=== PATIENT | male | born 1975 | race Caucasian/White ===

== ENCOUNTER 2020-11-03 09:55 | Emergency (ER) | payer OTHER, SELFPAY ==
[2020-11-03 10:06] VITALS: BP 153/107; PULSE 83; RESP 16; TEMP 37.7; O2SAT 100; BMI 42.8
--- NOTE | 2020-11-03 10:14 | HMH.EDUTC ---
[facility] [place]ression: Sinusitis Qualifiers: Sinusitis location: unspecified location Chronicity: unspecified Qualified Code(s): J32.9 - Chronic sinusitis, unspecified Disposition: Home, Self-Care Condition on Discharge: Good Instructions: Sinusitis, DI for Sinusitis, Azithromycin Additional Instructions: *Monitor Temp, Over the counter Motrin or Tylenol as directed/as needed Tylenol every 4 hours and Motrin every 6 hours (as long as your family doctor has told you that you can take it) for fever or pain. and straight to ER if unable to lower temp less than 101.0 after medication given *Warm salt water gargles may help to soothe the throat *Throat Lozenges *Warm fluids like tea with honey may help to soothe the throat *Sleep elevated *Humidifier/Vaporizer *Flonase 2 sprays in each nostril daily but be aware that it may take 2-3 days before you notice improvement Take medication as prescribed [facility] make sure to follow up with your Family Doctor for re-evaluation of blood pressure if it continues to remain elevated Follow up IMMEDIATELY for new or worsening symptoms or no Noticeable improvement over the next 48-72 hours. 911 for difficulty breathing or swallowing Prescriptions: Fluticasone Propionate [Flonase 50mcg nasal spray 16gm] 1 spr NS DAILY #1 bottle Transmission Status: Received by [facility]/pharmacy #[id number] methylPREDNISolone [Medrol 4mg tab] 4 mg PO DIRECTED #21 tab Transmission Status: Received by [facility]/pharmacy #[id number] Benzonatate [Tessalon Perle 100mg Cap*] 100 mg PO TID PRN #15 cap PRN Reason: Cough Transmission Status: Received by [facility]/pharmacy #[id number] Azithromycin [Z-Jose 250mg Tab] 250 mg PO DIRECTED #6 tab Transmission Status: Received by [facility]/pharmacy #[id number] Referrals: Serge Hansen MD [Primary Care Provider] - As needed Time of Disposition: 10:20 Medical Decision Making - Donaldo Inquiry Pt receiving controlled substance: No Donaldo was queried for this patient: No Vital Signs: 11/03/20 10:06 Temperature 100 F H Temperature Source Tympanic Pulse Rate [Right] 83 Respiratory Rate 16 Blood Pressure [Right Arm] 153/107 H Blood Pressure Mean [Right Arm] 122 Blood Pressure Source [Right Arm] Automatic Cuff Blood Pressure Position [Right Arm] Sitting 02 Sat by Pulse Oximetry 100 Oxygen Delivery Method Room Air [facility] [place] - General Stated complaint: severe sinuses Time Seen by Provider: 11/03/20 10:15 Mode of Arrival: Ambulatory Source of Information: Patient Limitations: No Limitations Description of Symptoms (Recalled from Triage Doc. by RN): sinus pressure and nonproductive cough. HEENT Symptoms (Recalled from RN notes): Yes (sinus pressure) Resp Symptoms (Recalled from RN notes): Yes (nonproductive cough) Skin Symptoms (Recalled from RN notes): No MS Symptoms (Recalled from RN notes): No Functional Status (Recalled from RN notes): na - History of Present Illness Provider Complaint: Patient states that he has been having sinus congestion for a couple weeks and started having pain and pressure for well over a week that has continued to get worse States that also has had nagging unproductive cough State that he gets this about this time every year and has to come in for it - Related Data Previous Rx's Medication Instructions Recorded Azithromycin [Z-Jose 250mg Tab] 250 mg PO DIRECTED #6 tab 11/03/20 Benzonatate [Tessalon Perle 100mg 100 mg PO TID PRN #15 cap 11/03/20 Cap*] Fluticasone Propionate [Flonase 1 spr NS DAILY #1 bottle 11/03/20 50mcg nasal spray 16gm] methylPREDNISolone [Medrol 4mg 4 mg PO DIRECTED #21 tab 11/03/20 tab] Allergies Allergy/AdvReac Type Severity Reaction Status Date / Time No Known Allergies Allergy Verified 11/03/20 10:13 - Worker's Comp Is this a Worker's Comp case?: No [facility] History - Hepatitis A Screen Drug use history?: No High risk sexual behaviors?: No Hist
[2020-11-03 10:37] VITALS: BP 145/99; PULSE 83; RESP 16; TEMP 37.7
== END 2020-11-03 10:37 | disposition home or self-care (01) ==
PROVIDERS: Emergency Provider Nurse Practitioner; PCP Internal Medicine Adolescent Medicine
DX: J32.9 Chronic sinusitis, unspecified (principal)
CPT/HCPCS: 99202; G0463

== ENCOUNTER 2021-03-17 09:00 | Emergency (ER) | payer OTHER, SELFPAY ==
[2021-03-17 09:05] VITALS: BP 175/106; PULSE 71; RESP 16; TEMP 36.5; O2SAT 99; BMI 42.2
[2021-03-17 09:22] LABS: Apearance,Urine Cloudy (Clear); Bilirubin,Urine Negative (Negative); Blood, Urine 1+ (Negative); Color,Urine Dark Yellow (Yellow); Glucose,Urine (UA) Negative (Negative); Ketones,Urine TRACE (Negative); Protein,Urine 1+ (Negative); Specific Gravity, Urine 1.025 (1.005-1.030); Urobilinogen,Urine 1 EU/dl (0.2)
[2021-03-17 09:23] LABS: UTC Leukocyte Esterase,Urine Trace (Negative); UTC Nitrate,Urine Negative (Negative)
--- NOTE | 2021-03-17 09:39 | HMH.EDUTC ---
[facility] Clinical Impression: UTI (urinary tract infection) Qualifiers: Urinary tract infection type: site unspecified Hematuria presence: with hematuria Qualified Code(s): N39.0 - Urinary tract infection, site not specified Disposition: Home, Self-Care Condition on Discharge: Good Instructions: Urinary Tract Infection, DI for Urinary Tract Infection (UTI) Additional Instructions: Drink plenty of fluids. Take tylenol or ibuprofen for pain or fever. Take the medications as directed. Follow up with your regular doctor. GO TO THE ER FOR ANY WORSENING SYMPTOMS Keep drinking lots of water. Keep drinking the cranberry juice at least once per day also. Follow up toward the end of your antibiotics, even if you're feeling better to get your urine rechecked. If you're not starting to get some better within 72 hours from now, please follow up with your primary care physician or return here. Prescriptions: Ciprofloxacin HCl [Cipro 500mg Tab] 500 mg PO BID 14 Days #28 tab Transmission Status: Received by [facility]/pharmacy #[id number] Referrals: Provider,Referral, [Primary Care Provider] - Time of Disposition: 09:50 Medical Decision Making - Medical Records Medical records reviewed: No: I reviewed the patient's medical records. - Donaldo Inquiry Pt receiving controlled substance: No Vital Signs: 03/17/21 09:05 03/17/21 09:53 Temperature 97.7 F 97.7 F Temperature Source Temporal Artery Scan Pulse Rate 71 Pulse Rate [Left] 71 Respiratory Rate 16 16 Blood Pressure 175/106 H Blood Pressure [Right Arm] 175/106 H Blood Pressure Mean [Right Arm] 129 02 Sat by Pulse Oximetry 99 - Lab Data Lab results reviewed: Yes: I reviewed the patient's lab results. Lab Results 03/17/21 09:18: Urine Color Dark yellow, Urine Appearance Cloudy, Urine pH 7.0, Ur Specific [place] 1.025, Urine Protein 1+, Urine Glucose (UA) Negative, Urine Ketones Trace, Urine Blood 1+, Urine Nitrate Negative, Urine Bilirubin Negative, Urine Urobilinogen 1, Ur Leukocyte Esterase Trace Orders (Tests/Meds): ORDERS Category Date Time Status Urine Culture Stat Micro 03/17/21 09:18 [place] [facility] [place] - General Stated complaint: possible uti or kidney stones Time Seen by Provider: 03/17/21 09:39 Mode of Arrival: Ambulatory Source of Information: Patient Limitations: No Limitations Description of Symptoms (Recalled from Triage Doc. by RN): pt c/o L flank/lower back pain, urinary urgency, frequency and pain with urination. pt has a hx of kidney stones but states this pain is different. pain is 6/10 HEENT Symptoms (Recalled from RN notes): No Resp Symptoms (Recalled from RN notes): No Skin Symptoms (Recalled from RN notes): No MS Symptoms (Recalled from RN notes): Yes (L lower back/flank pain) Functional Status (Recalled from RN notes): na - History of Present Illness Provider Complaint: He c/o low back pain, burning while urination for the past 2 weeks. - Related Data Previous Rx's Medication Instructions Recorded Azithromycin [Z-Jose 250mg Tab] 250 mg PO DIRECTED #6 tab 11/03/20 Benzonatate [Tessalon Perle 100mg 100 mg PO TID PRN #15 cap 11/03/20 Cap*] Fluticasone Propionate [Flonase 1 spr NS DAILY #1 bottle 11/03/20 50mcg nasal spray 16gm] methylPREDNISolone [Medrol 4mg 4 mg PO DIRECTED #21 tab 11/03/20 tab] Ciprofloxacin HCl [Cipro 500mg 500 mg PO BID 14 Days #28 tab 03/17/21 Tab] Allergies Allergy/AdvReac Type Severity Reaction Status Date / Time No Known Allergies Allergy Verified 11/03/20 10:13 - Worker's Comp Is this a Worker's Comp case?: No [facility] History - Hepatitis A Screen Drug use history?: No High risk sexual behaviors?: No History of sexually transmitted infection?: No Currently employed?: No Childcare worker?: No Do you have indoor plumbing?: Yes Do you have electricity?: Yes Attestation statement:: This patient has been screened for Hepatitis A ri
[2021-03-17 09:53] VITALS: BP 175/106; PULSE 71; RESP 16; TEMP 36.5
[2021-03-19 05:44] LABS: Neisseria gonorrhoeae, NAA Negative (Negative)
== END 2021-03-17 09:56 | disposition home or self-care (01) ==
PROVIDERS: Emergency Provider Nurse Practitioner Family
DX: N30.00 Acute cystitis without hematuria (principal)
CPT/HCPCS: 81003; 87086; 87491; 87591; 99202; G0463

== ENCOUNTER → 2021-05-02 08:43 | Outpatient (CLI) | payer OTHER, SELFPAY ==
[2021-05-02 09:19] LABS: Basophils # 0.1 K/mm3 (0-0.2); Basophils % 0.7 % (0.1-2.0); Eosinophils # 0.4 K/mm3 (0.0-0.4); Eosinophils % 5.8 % (0.1-12.0); Hematocrit 46.3 % (42.0-52.0); Hemoglobin 15.9 g/dL (14.1-18.0); Lymphocytes # 1.7 K/mm3 (0.7-4.5); Lymphocytes % 22.3 % (10-50); Mean Corpuscular HGB Conc 34.4 g/dL (31.8-35.4); Mean Corpuscular Volume 84.5 fl (80-94); Monocytes # 0.7 K/mm3 (0.1-1.0); Monocytes % 8.6 % (1.7-9.3); Neutrophils # 4.7 K/mm3 (1.8-7.8); Neutrophils % 62.7 % (37.0-80.0); Platelet Count 265 K/mm3 (142-424); Red Blood Count 5.48 M/mm3 (4.60-6.20); Red Cell Distribution Width 14.7 % (11.5-17.5); White Blood Count 7.6 K/mm3 (4.8-10.8)
[2021-05-02 10:14] LABS: Alanine Aminotransferase 35 U/L (12-78); Albumin Level 4.2 g/dl (3.5-5.0); Albumin/Globulin Ratio 1.4 (1.1-1.8); Alkaline Phosphatase 71 U/L (38-126); Anion Gap 10.3 mEq/L (5-15); Aspartate Amino Transferase 42 U/L (17-59); Bilirubin,Total 0.5 mg/dl (0.2-1.3); Blood Urea Nitrogen 16 mg/dl (9-20); Calcium 9.7 mg/dl (8.4-10.2); Carbon Dioxide 30 mmol/L (22.0-30.0); Chloride 104 mmol/L (98-107); Cholesterol 253 mg/dl (140-200); Estimated Glomerular Filt Rate 60 ml/min (>60); GFR (African American) 72 ML/MIN (>60); Glucose 89 mg/dl (74-100); HDL Cholesterol 42 mg/dl (40-60); Potassium 5.3 mmoL/L (3.5-5.1); Sodium 139 mmol/L (136-145); Total Protein,Serum 7.2 g/dl (6.3-8.2); Triglycerides 208 mg/dl (30-150); VLDL Cholesterol 42 mg/dL (0-40)
[2021-05-02 10:25] LABS: Direct LDL Cholesterol 162.34 mg/dL (100-129)
[2021-05-02 11:52] LABS: Thyroid Stimulating Hormone 3.34 uIU/mL (0.465-4.68)
== END ==
PROVIDERS: Visit Provider Nurse Practitioner Family
DX: Z00.00 Encounter for general adult medical examination without abnormal findings (principal); E66.01 Morbid (severe) obesity due to excess calories
CPT/HCPCS: 36415; 80053; 80061; 83036; 84443; 85025; G0103

== ENCOUNTER → 2021-05-13 09:07 | Outpatient (CLI) | payer OTHER, SELFPAY ==
--- NOTE | 2021-05-13 09:11 | US_ITS ---
PROCEDURE: US KIDNEY CLINICAL INDICATION: CREATINE ELEVATION COMPARISON: No exams were available for comparison FINDINGS: The right kidney is [id number]. No hydronephrosis, cortical thinning, or renal mass or perinephric fluid collection is evident. The left kidney is [id number]. No hydronephrosis, cortical thinning, or renal mass or perinephric fluid collection is evident. IMPRESSION: Unremarkable bilateral renal ultrasound Dictated by: Dario Carrasco MD 05/13/2021 16:47 Dario Carrasco MD in [place] 05/13/2021 16:47
== END ==
PROVIDERS: PCP Nurse Practitioner Family; Visit Provider Nurse Practitioner Family
DX: R79.89 Other specified abnormal findings of blood chemistry (principal)
CPT/HCPCS: 76770

== ENCOUNTER 2021-06-16 09:08 | Emergency (ER) | payer OTHER, SELFPAY ==
[2021-06-16 10:00] VITALS: BP 140/90; PULSE 87; RESP 21; TEMP 37.1; O2SAT 98; BMI 42.8
[2021-06-16 10:21] LABS: UTC Influenza A Antigen Negative (Negative)
[2021-06-16 10:22] LABS: UTC Influenza B Antigen Negative (Negative)
--- NOTE | 2021-06-16 10:38 | HMH.EDUTC ---
[facility] [place] Clinical Impression: Bronchitis Sinusitis Qualifiers: Sinusitis location: unspecified location Chronicity: unspecified Qualified Code(s): J32.9 - Chronic sinusitis, unspecified Disposition: Home, Self-Care Condition on Discharge: Good Instructions: Sinusitis, Acute Bronchitis, DI for Sinusitis Additional Instructions: ? Start antibiotic today. Be sure to complete entire prescription even if feeling better ? Monitor temp. Tylenol every 4 hours as needed and / or ibuprofen every 6 hours as needed ( As long as your primary care physician has told you that it ok to take both. For fever/aches/pains ER if no less than 101 despite Tylenol or Motrin ? Humidifier/vaporizer or hot steamy shower ? Inhaler every 4-6 hours as needed like we discussed. If unsure how to use it, ask pharmacist to demonstrate how. Should help open airways and improve cough, wheezing, and shortness of breath *Tessalon Perles will not cause drowsiness but use at bedtime to help stop cough so that you may get some rest. *Start steroid today. Helps with inflammation therefore, cough and wheezing. Follow directions on the package. Reviewed side effects. Patient reports taking them before. Follow up IMMEDIATELY for new or worsening of symptoms OR no noticeable improvement over the next 48-72 hours. 911 immediately for any life threatening symptoms such as chest pain or difficulty breathing Prescriptions: Benzonatate [Benzonatate 100mg cap] 100 mg PO Q8HP PRN #30 cap PRN Reason: Cough Transmission Status: Received by [facility]/pharmacy #[id number] Amoxicillin/Potassium Clav [Augmentin 875-125 Tablet] 1 tab PO Q12H 10 Days #20 tab predniSONE [Prednisone 20mg Tab] 20 mg PO BID 5 Days #10 tab Referrals: Serge Hansen MD [Primary Care Provider] - As needed Medical Decision Making - Donaldo Inquiry Pt receiving controlled substance: No Donaldo was queried for this patient: No Vital Signs: 06/16/21 10:00 06/16/21 10:51 Temperature 98.7 F 98.7 F Temperature Source Oral Pulse Rate 87 Pulse Rate [Right Brachial] 87 Respiratory Rate 21 21 Blood Pressure 140/90 Blood Pressure [Right Arm] 140/90 Blood Pressure Mean [Right Arm] 106 Blood Pressure Source [Right Arm] Automatic Cuff Blood Pressure Position [Right Arm] Sitting 02 Sat by Pulse Oximetry 98 Oxygen Delivery Method Room Air - Lab Data Lab results reviewed: Yes: I reviewed the patient's lab results. Lab Results 06/16/21 10:11: Influenza Type A Ag Negative, Influenza Type B Ag Negative Orders (Tests/Meds): ORDERS Category Date Time Status Covid-19 Nasal PCR ([facility]) Routine Lab 06/16/21 11:11 Received [facility] [place] - General Stated complaint: fever,chills,sore throat,cough,headache Time Seen by Provider: 06/16/21 10:38 Mode of Arrival: Ambulatory Source of Information: Patient Limitations: No Limitations Description of Symptoms (Recalled from Triage Doc. by RN): PATIENT C/O COUGH, FEVER, BODY ACHES, AND CHEST CONGESTION X 1 WEEK HEENT Symptoms (Recalled from RN notes): No Resp Symptoms (Recalled from RN notes): Yes Skin Symptoms (Recalled from RN notes): No MS Symptoms (Recalled from RN notes): Yes Functional Status (Recalled from RN notes): WNL - History of Present Illness Provider Complaint: Patient state that he thinks he had a sinus infection a few weeks ago and thinks it is moving into his chest area and causing bronchitits State that he has been having scratchy throat, cough, chest congestion and fever States that he was still feeling bad today so he came in to get checked out - Related Data Previous Rx's Medication Instructions Recorded Azithromycin [Z-Jose 250mg Tab] 250 mg PO DIRECTED #6 tab 11/03/20 Benzonatate [Tessalon Perle 100mg 100 mg PO TID PRN #15 cap 11/03/20 Cap*] Fluticasone Propionate [Flonase 1 spr NS DAILY #1 bottle 11/03/20 50mcg nasal spray 16gm] methylPREDNISolone [Medrol 4mg 4 mg PO DIRECTED #21 tab 11/03/20 tab]
[2021-06-16 10:51] VITALS: BP 140/90; PULSE 87; RESP 21; TEMP 37.1; O2SAT 98
== END 2021-06-16 11:09 | disposition home or self-care (01) ==
PROVIDERS: Emergency Provider Nurse Practitioner; PCP Internal Medicine Adolescent Medicine
DX: J20.9 Acute bronchitis, unspecified (principal); J32.9 Chronic sinusitis, unspecified
CPT/HCPCS: 87804; 99202; C9803; G0463; U0003; U0005

== ENCOUNTER 2021-07-29 09:47 | Emergency (ER) | payer OTHER, SELFPAY ==
--- NOTE | 2021-07-29 12:14 | HMH.EDUTC ---
[facility] [place] Clinical Impression: Left foot pain Gout Qualifiers: Gout site: foot Gout etiology: unspecified cause Chronicity: acute Laterality: left Qualified Code(s): M10.9 - Gout, unspecified Disposition: Home, Self-Care Condition on Discharge: Good Instructions: Gout, DI for Gout Additional Instructions: Rest the extremity, Elevate the extremity as tolerated while you are resting. Don't start the oral steroids (medrol dose pack) until tomorrow, since you had the shot here today. Follow up with your regular doctor. GO TO THE ER FOR ANY WORSENING SYMPTOMS Prescriptions: methylPREDNISolone [Medrol] 4 mg PO DIRECTED 6 Days #21 packet Transmission Status: Received by [facility]/pharmacy #[id number] Referrals: Serge Hansen MD [Primary Care Provider] - Forms: Work/School Release Time of Disposition: 13:04 Medical Decision Making - Medical Records Medical records reviewed: No: I reviewed the patient's medical records. - Donaldo Inquiry Pt receiving controlled substance: No Vital Signs: 07/29/21 12:16 07/29/21 13:15 Temperature 97.7 F 97.7 F Temperature Source Oral Pulse Rate 65 Pulse Rate [Left] 65 Respiratory Rate 18 18 Blood Pressure 146/93 H Blood Pressure [Right Arm] 146/93 H Blood Pressure Mean [Right Arm] 110 02 Sat by Pulse Oximetry 100 Orders (Tests/Meds): ED MEDICATIONS Discontinued Medications Generic Name Dose Route Start Last Admin Trade Name Torres PRN Reason Stop Dose Admin Methylprednisolone Sodium Succinate 125 mg 07/29/21 12:27 07/29/21 12:34 Methylprednisolone Sod Succ 125mg Vial IM 07/29/21 12:28 125 mg ONCE ONE Administration [facility] [place] HPI - General Stated complaint: gout in left big toe Time Seen by Provider: 07/29/21 12:14 - History of Present Illness Provider Complaint: He has a history of getting gout in his left foot. He states that for the past 4 days he has had pain, swelling and tenderness of the area at the base of his left great toe. He is sure he is having a gout flare up. He used to just go to his doctor and get medication when this happened, but his pcp recently switched and he could not get in quick enough to see his new pcp. He states that he has been lax with his diet recently and it triggered this gout flare up. - Related Data Previous Rx's Medication Instructions Recorded Azithromycin [Z-Jose 250mg Tab] 250 mg PO DIRECTED #6 tab 11/03/20 Benzonatate [Tessalon Perle 100mg 100 mg PO TID PRN #15 cap 11/03/20 Cap*] Fluticasone Propionate [Flonase 1 spr NS DAILY #1 bottle 11/03/20 50mcg nasal spray 16gm] methylPREDNISolone [Medrol 4mg 4 mg PO DIRECTED #21 tab 11/03/20 tab] Ciprofloxacin HCl [Cipro 500mg 500 mg PO BID 14 Days #28 tab 03/17/21 Tab] Amoxicillin/Potassium Clav 1 tab PO Q12H 10 Days #20 tab 06/16/21 [Augmentin 875-125 Tablet] Benzonatate [Benzonatate 100mg 100 mg PO Q8HP PRN #30 cap 06/16/21 cap] predniSONE [Prednisone 20mg 20 mg PO BID 5 Days #10 tab 06/16/21 Tab] methylPREDNISolone [Medrol] 4 mg PO DIRECTED 6 Days #21 07/29/21 packet Allergies Allergy/AdvReac Type Severity Reaction Status Date / Time No Known Allergies Allergy Verified 11/03/20 10:13 [facility] History - Hepatitis A Screen Attestation statement:: This patient has been screened for Hepatitis A risk factors. I have reviewed the patient's past medical history: Yes - Social History Alcohol Intake: current Occupational Status: other ROS Obtained: No All systems reviewed & no additional complaints - Constitutional Constitutional: Reports chills, Denies fever(s) - Musculoskeletal Musculoskeletal: Reports as per HPI - Integumentary/Breasts Skin/Breast: Reports redness, Denies rash, Denies wounds Physical Exam - General General appearance: alert, in no apparent distress - Head Head exam: atraumatic, normocephalic, normal inspection - Eye Eye exam: Present: normal appe
[2021-07-29 12:16] VITALS: BP 146/93; PULSE 65; RESP 18; TEMP 36.5; O2SAT 100; BMI 42.8
[2021-07-29 13:15] VITALS: BP 146/93; PULSE 65; RESP 18; TEMP 36.5
== END 2021-07-29 13:17 | disposition home or self-care (01) ==
PROVIDERS: Emergency Provider Nurse Practitioner Family; PCP Internal Medicine Adolescent Medicine
DX: M10.072 Idiopathic gout, left ankle and foot (principal)
CPT/HCPCS: 96372; 99202; G0463

== ENCOUNTER 2022-08-23 08:00 | Emergency (ER) | payer OTHER, SELFPAY ==
[2022-08-23 08:05] VITALS: BP 131/98; PULSE 85; RESP 14; TEMP 37; O2SAT 95; BMI 38.1
--- NOTE | 2022-08-23 08:24 | EXP.UTC ---
Discharge Plan Disposition Patient Disposition: Home, Self-Care Condition: Good Prescriptions Prescriptions: New sulfamethoxazole-trimethoprim [Bactrim DS] 800-160 mg tablet 1 tab PO BID Qty: 20 0RF phenazopyridine [Pyridium] 200 mg tablet 200 mg PO Q8H 2 Days Qty: 6 0RF Referrals Follow up/Referrals: Kim Gaines APRN [Primary Care Provider] - See instructions Activity Restrictions/Add. Instructions Additional Instructions/Restrictions: *Increase fluids. Water not Soda or Tea *Start antibiotic immediately and be sure to take as ordered for the FULL length of time although you should start to see improvement over the next 48 hours *Pyridium as needed Remember this medication will turn your urine . This is normal but it will stain what ever it gets on *You should not use Pyridium for more than 48 hours. If so , follow up with your primary physician to review urine culture and ensure that antibiotic is adequate for infection *Be SURE to follow up anytime for new or worsening symptoms with your family doctor. AND in 48 hours for urine culture results with your family doctor, if you do not have a doctor then you may call back to the [facility] for urine culture results and further treatment. We do recommend that you choose and establish care with a Primary Care Physician. ?AND follow up with them ?in 10-14 days to repeat UA to ensure infection is resolved and blood no longer present *Be sure to let your PCP know that we sent urine cultures from the [facility] so they can follow up to ensure that you area the on the correct antibiotic Call your doctor office and make appointment for 48 hours (2 days from today) ?to follow up and get the results of your urine culture and further treatment Clinical Impressions Clinical Impression: UTI (urinary tract infection) Qualifiers: Urinary tract infection type: site unspecified Instructions Patient Instructions: DI for Urinary Tract Infection (UTI), DI for Sinusitis [place]charge ED [place] Nano Whelan [facility] [place] General Stated complaint: possible UTI, drainage, sinus pressure Time Seen by Provider: 08/23/22 08:24 History of Present Illness Provider Complaint: Patient states that he has been having some burning with urination like he has had before when he had a UTI State that he has also been having sinus pain and pressure and pressure like feeling in his right ear States that he has taken some AZO and it did help some with the burning but still feeling like he has to go alot Related Data Previous Rx's Medication Instructions Recorded phenazopyridine 200 mg tablet 200 mg PO Q8H pain 2 days #6 tabs 08/23/22 (Pyridium) sulfamethoxazole 800 1 tab PO BID #20 tabs 08/23/22 mg-trimethoprim 160 mg tablet (Bactrim DS) Allergies Allergy/AdvReac Type Severity Reaction Status Date / Time No Known Allergies Allergy Verified 11/03/20 10:13 [facility] Disclaimer: The information contained in this section may have been updated after the patient was seen, as this information can be updated by other users. Social History Smoking Status: Unknown if ever smoked alcohol intake: current current occupational status: other Travel in the last 8 weeks: None ROS Obtained: Yes All systems reviewed & no additional complaints except as documented and Yes Systems reviewed as appropriate & no additional complaints except as documented Constitutional Constitutional: Reports system reviewed and no additional complaints, except as documented, Reports as per HPI and Denies fever(s) ENT Ears, Nose, Mouth, and Throat: Reports system reviewed and no additional complaints, except as documented, Reports as per HPI, Reports sinus pain and Reports sinus pressure Cardiovascular Cardiovascular: Reports system reviewed and no additional complaints, except as documented and Reports as per HPI Respiratory Respiratory: Reports system reviewed and no additional complaints, except as documented and R
[2022-08-23 08:40] VITALS: BP 131/98; PULSE 85; RESP 14; TEMP 37; O2SAT 95
[2022-08-23 08:41] LABS: Apearance,Urine Clear (Clear); Color,Urine Orange (Yellow); PH,Urine 6.5 (5.0-8.5)
[2022-08-23 08:42] LABS: Bilirubin,Urine 1+ (Negative); Blood, Urine Negative (Negative); Glucose,Urine (UA) 100 (Negative); Ketones,Urine TRACE (Negative); Protein,Urine 2+ (Negative); UTC Leukocyte Esterase,Urine 3+ (Negative); UTC Nitrate,Urine Positive (Negative); Urobilinogen,Urine 2 EU/dl (0.2)
== END 2022-08-23 08:48 | disposition home or self-care (01) ==
PROVIDERS: Emergency Provider Nurse Practitioner; PCP Nurse Practitioner Family
DX: N39.0 Urinary tract infection, site not specified (principal); J01.90 Acute sinusitis, unspecified
CPT/HCPCS: 81003; 87086; 99212; 99214; G0463

== ENCOUNTER → 2022-08-23 08:50 | Outpatient (CLI) | payer OTHER, SELFPAY ==
[2022-08-23 09:16] LABS: Basophils % 0.6 % (0.1-2.0); Eosinophils # 0.4 K/mm3 (0.0-0.4); Eosinophils % 5.2 % (0.1-12.0); Hemoglobin 15.2 g/dL (14.1-18.0); Lymphocytes # 1.1 K/mm3 (0.7-4.5); Lymphocytes % 14.3 % (10-50); Mean Corpuscular HGB Conc 33.1 g/dL (31.8-35.4); Mean Corpuscular Hemoglobin 28.4 pg (27.0-31.2); Mean Corpuscular Volume 85.9 fl (80-94); Mean Platelet Volume 7.6 fl (7.4-10.4); Monocytes # 0.5 K/mm3 (0.1-1.0); Monocytes % 6.7 % (1.7-9.3); Neutrophils # 5.3 K/mm3 (1.8-7.8); Neutrophils % 73.2 % (37.0-80.0); Platelet Count 253 K/mm3 (142-424); Red Blood Count 5.36 M/mm3 (4.60-6.20); Red Cell Distribution Width 14.6 % (11.5-17.5); White Blood Count 7.3 K/mm3 (4.8-10.8)
[2022-08-23 09:43] LABS: Alanine Aminotransferase 37 U/L (12-78); Albumin Level 4.1 g/dl (3.5-5.0); Albumin/Globulin Ratio 1.6 (1.1-1.8); Anion Gap 11.9 mEq/L (5-15); Aspartate Amino Transferase 39 U/L (17-59); Blood Urea Nitrogen 15 mg/dl (9-20); Carbon Dioxide 25 mmol/L (22.0-30.0); Chloride 102 mmol/L (98-107); Cholesterol 262 mg/dl (140-200); Estimated Glomerular Filt Rate 72 ml/min (>60); GFR (African American) 87 ML/MIN (>60); Globulin 2.6 g/dL (1.3-3.2); Potassium 4.9 mmoL/L (3.5-5.1); Sodium 134 mmol/L (136-145); Total Protein,Serum 6.7 g/dl (6.3-8.2); Triglycerides 130 mg/dl (30-150); VLDL Cholesterol 26 mg/dL (0-40)
[2022-08-23 09:45] LABS: Alkaline Phosphatase 83 U/L (38-126); Bilirubin,Total 0.9 mg/dl (0.2-1.3); Calcium 8.8 mg/dl (8.4-10.2); Chol/HDL Ratio 6.9 (1-3.5); Glucose 96 mg/dl (74-100); HDL Cholesterol 38 mg/dl (40-60)
[2022-08-23 09:53] LABS: Erythrocyte Sedimentation Rate 18 mm/hr (0-15)
[2022-08-23 10:06] LABS: Direct LDL Cholesterol 180.12 mg/dL (100-129)
[2022-08-23 10:14] LABS: Thyroid Stimulating Hormone 3.11 uIU/mL (0.465-4.68)
[2022-08-23 10:30] LABS: 25-OH Vitamin D, Total 24.4 ng/mL (30-100)
[2022-08-23 10:33] LABS: Vitamin B12 536 pg/mL (239-931)
[2022-08-24 08:15] LABS: RA Latex Turbid. 10.3 IU/mL (<14.0)
[2022-08-29 19:11] LABS: HLA-B27 Negative (.)
[2022-09-01 09:39] LABS: Antinuclear Antibodies (ANA) NEGATIVE
== END ==
PROVIDERS: PCP Nurse Practitioner Family; Visit Provider Nurse Practitioner Family
DX: Z00.00 Encounter for general adult medical examination without abnormal findings (principal); M25.50 Pain in unspecified joint; M54.41 Lumbago with sciatica, right side
CPT/HCPCS: 36415; 80053; 80061; 82306; 82607; 84443; 84550; 85025; 85651; 86038; 86431; 86812

== ENCOUNTER 2023-03-09 08:00 | Outpatient (RCR) | payer OTHER, SELFPAY ==
--- NOTE | 2023-02-16 12:54 | HMH.PTOPEV ---
PT Outpatient Evaluation Rehab PT Outpatient Evaluation Start: 02/16/23 07:57 Freq: Status: Active Protocol: Document 02/16/23 08:05 FREDY (Rec: 02/16/23 12:54 FREDY [id number]) E-signed By Kait Silva, PT Outpatient Therapy Subjective History Subjective History Pt presents to the PT clinic with reports of R SI joint pain. Pt reports that he think that he injured it while playing pickleball last fall. Pt reports that it has gradually gotten worse since last fall. Pt reports that he went to a chiropractor on Sunday and felt a little better following that treatment. Pt reports that he had a discectomy on L5/S1 when he was 20 years ago. Pt reports that that he had an injection into his R SI a few months ago which he had relief from. Pt reports that he feel pain in the R side of his thigh when he twists onto his R thigh. Pt reports he is unable to find a comfortable position when laying flat. Pt reports that he usually feels better when he is standing and walking. Pt reports that he feels pain into the front of his R hip as well. 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 PMH: HTN, lumbar spine discetomy New diagnosis of cancer in past 12 No months? Chief Complaint Pain,Clicks,Gives out/Unstable ,Weakness Symptom Type Ache,Sharp,Stabbing Symptoms Relieved By Rest/Positioning Symptoms Aggravated By Supine,Sitting,Bending/ Stooping,Twisting,Lifting Prior Functional Limitations None Current Functional Limitations Lifting,Housework,Driving, Sleeping,Sitting,Recreation Activity,Stairs,Bending/ Stooping Symptom Description Activity Dependent Level of pain today (0-10) 1 Pain scale - at its best (0-10) 0 Pain scale - at its worst (0-10)
== END 2023-03-09 08:05 | disposition home or self-care (01) ==
LOC: PT 08:00
PROVIDERS: PCP Nurse Practitioner Family; Visit Provider Nurse Practitioner Family
DX: M46.1 Sacroiliitis, not elsewhere classified (principal)
CPT/HCPCS: 97010; 97033; 97110; 97140; 97163; 97530

== ENCOUNTER 2023-05-22 09:47 | Emergency (ER) | payer OTHER, SELFPAY ==
[2023-05-22 10:10] VITALS: BP 158/92; PULSE 86; RESP 18; TEMP 37.6; O2SAT 98; BMI 36.9
[2023-05-22 10:34] LABS: UTC Influenza A Antigen Positive (Negative); UTC Influenza B Antigen Negative (Negative)
--- NOTE | 2023-05-22 10:54 | EXP.UTC ---
Discharge Plan Disposition Patient Disposition: Home, Self-Care Condition: Good Prescriptions Prescriptions: New oseltamivir [Tamiflu] 75 mg capsule 75 mg PO BID 5 Days Qty: 10 0RF benzonatate 100 mg capsule 100 mg PO TID PRN (Reason: cough) Qty: 30 0RF Referrals Follow up/Referrals: eSrge Hansen MD [Primary Care Provider] - See instructions Activity Restrictions/Add. Instructions Additional Instructions/Restrictions: Start Tamiflu today if you are going to take it. Discussed risk and possible benefits. Lots of rest Increase Fluids water, Gatorade, powerade, pedialyte,if /toddler/child Alternate Tylenol and / or ibuprofen as discussed for fever, aches, chills Follow up IMMEDIATELY with your family doctor for new or worsening Symptoms OR no noticeable improvement over the next 48-72 hours, 911 for difficulty or breathing You or your child area contagious until no fever, aches, chills for 24 hours with medication for symptoms Help Prevent the spread of influenza: ?Wash your hands often. Use soap and water. Wash your hands after you use the bathroom, change a child's diapers, or sneeze. Wash your hands before you prepare or eat food. Use gel hand cleanser that has 60% alcohol, when soap and water are not available. Do not touch your eyes, nose, or mouth unless you have washed your hands first. Cover your mouth when you sneeze or cough. Cough into a tissue or the bend of your arm. If you use a tissue, throw it away immediately and wash your hands. Clean shared items with a germ-killing brush cleaner. Clean table surfaces, doorknobs, and light switches. Do not share towels, silverware, and dishes with people who are sick. Wash bed sheets, towels, silverware, and dishes with soap and water. Wear a mask over your mouth and nose if you are sick. The face mask may help protect others from becoming infected with the flu. Wear the mask when in common areas of your home or if you seek care with a healthcare provider. Stay away from others if you are sick. Stay at home until 24 hours after your fever and symptoms are gone. Clinical Impressions Clinical Impression: Influenza A Stand Alone Forms Stand Alone Forms: Work/School Release Instructions Patient Instructions: Influenza, DI for Influenza -- Adult Discharge ED Provider: Nano Whelan [facility] HPI General Stated complaint: temp cough nausea body aches Mode of Arrival: Ambulatory Source of Information: Patient Limitations: No Limitations Time Seen by Provider: 05/22/23 10:54 Description of Symptoms (Recalled from Triage Doc. by RN): Symptoms are body aches, fever, chills, stomach ache, cough, drainage, and ear ache. HEENT Symptoms (Recalled from RN notes): Yes Resp Symptoms (Recalled from RN notes): No Skin Symptoms (Recalled from RN notes): No MS Symptoms (Recalled from RN notes): No Functional Status (Recalled from RN notes): n/a History of Present Illness Provider Complaint: Patient states that he feels like he has the flu States that he has been having fever, chills, body aches, pain in his ears, cough and nasal congestion States that today his body aches was worse so he came in Related Data Previous Rx's Medication Instructions Recorded benzonatate 100 mg capsule 100 mg PO TID PRN cough #30 caps 05/22/23 oseltamivir 75 mg capsule (Tamiflu) 75 mg PO BID 5 days #10 caps 05/22/23 Allergies Allergy/AdvReac Type Severity Reaction Status Date / Time No Known Allergies Allergy Verified 05/22/23 10:32 Worker's Comp Is this a Worker's Comp case?: No [facility] Disclaimer: The information contained in this section may have been updated after the patient was seen, as this information can be updated by other users. Social History Smoking Status: Unk
[2023-05-22 11:07] VITALS: BP 158/92; PULSE 86; RESP 18; TEMP 37.6; O2SAT 98
== END 2023-05-22 11:07 | disposition home or self-care (01) ==
PROVIDERS: Emergency Provider Nurse Practitioner; PCP Internal Medicine Adolescent Medicine
DX: J10.1 Influenza due to other identified influenza virus with other respiratory manifestations (principal); R51.9 Headache, unspecified; R05.9 Cough, unspecified; R11.0 Nausea; R50.9 Fever, unspecified; H92.09 Otalgia, unspecified ear; R09.81 Nasal congestion; M79.18 Myalgia, other site
CPT/HCPCS: 87804; 99212; 99214; G0463

== ENCOUNTER 2023-05-30 19:00 | Emergency (ER) | payer OTHER, SELFPAY ==
[2023-05-30 19:46] VITALS: BP 154/114; PULSE 64; RESP 19; TEMP 36.8; O2SAT 98; BMI 39.6
--- NOTE | 2023-05-30 19:55 | EXP.UTC ---
Discharge Plan Disposition Patient Disposition: Home, Self-Care Condition: Good Prescriptions Prescriptions: New amoxicillin-pot clavulanate 875-125 mg Tablet 1 tab PO Q12H Qty: 20 0RF ibuprofen [IBU] 800 mg tablet 800 mg PO TIDP PRN (Reason: Moderate Pain) Qty: 20 0RF No Action oseltamivir [Tamiflu] 75 mg capsule 75 mg PO BID 5 Days Qty: 10 0RF benzonatate 100 mg capsule 100 mg PO TID PRN (Reason: cough) Qty: 30 0RF Referrals Follow up/Referrals: Kim Gaines APRN [Primary Care Provider] - See instructions Activity Restrictions/Add. Instructions Additional Instructions/Restrictions: Take medication as prescribed Do not take Indomethacin while you are taking Ibuprofen 800mg if you need something else take Tylenol Follow up with Dentist as soon as possible Use dental balls as directed Clinical Impressions Clinical Impression: Pain, dental Instructions Patient Instructions: DI for Dental Pain, Amoxicillin and Clavulanic Acid Discharge ED Provider: Nano Whelan [facility] General Stated complaint: tooth pain Mode of Arrival: Ambulatory Source of Information: Patient Limitations: No Limitations Time Seen by Provider: 05/30/23 20:01 Description of Symptoms (Recalled from Triage Doc. by RN): Patient reports infection in tooth and toothache for 3 days. HEENT Symptoms (Recalled from RN notes): Yes Resp Symptoms (Recalled from RN notes): No Skin Symptoms (Recalled from RN notes): No MS Symptoms (Recalled from RN notes): No Functional Status (Recalled from RN notes): wnl History of Present Illness Provider Complaint: Patient states that he has been having pain in his left lower back tooth that is broken States that he has been having worsening of pain over the last 3 days States that he feels like his gum is swollen and pressure is building up in his tooth so tonight he came in to see if he could get some antibiotics and something to help until he can get into the dentist Related Data Previous Rx's Medication Instructions Recorded benzonatate 100 mg capsule 100 mg PO TID PRN cough #30 caps 05/22/23 oseltamivir 75 mg capsule (Tamiflu) 75 mg PO BID 5 days #10 caps 05/22/23 amoxicillin 875 mg-potassium 1 tab PO Q12H #20 tabs 05/30/23 clavulanate 125 mg tablet ibuprofen 800 mg tablet (IBU) 800 mg PO TIDP PRN Moderate Pain 05/30/23 #20 tabs Allergies Allergy/AdvReac Type Severity Reaction Status Date / Time No Known Allergies Allergy Verified 05/22/23 10:32 Worker's Comp Is this a Worker's Comp case?: No [facility] Disclaimer: The information contained in this section may have been updated after the patient was seen, as this information can be updated by other users. Social History Smoking Status: Unknown if ever smoked alcohol intake: current current occupational status: other Travel in the last 8 weeks: None ROS Obtained: Yes All systems reviewed & no additional complaints except as documented and Yes Systems reviewed as appropriate & no additional complaints except as documented Constitutional Constitutional: Reports system reviewed and no additional complaints, except as documented and Reports as per HPI ENT Ears, Nose, Mouth, and Throat: Reports system reviewed and no additional complaints, except as documented, Reports as per HPI and Reports dental pain Cardiovascular Cardiovascular: Reports system reviewed and no additional complaints, except as documented and Reports as per HPI Respiratory Respiratory: Reports system reviewed and no additional complaints, except as documented and Reports as per HPI Gastrointestinal Gastrointestingal: Reports system reviewed and no additional complaints, except as documented and as per HPI Physical Exam General General appearance: alert and in no apparent distress ENT ENT exam: Present mucous membranes moist Expanded ENT Exam Teeth exam: Present fractured tooth # (broken tooth noted with mild redness to gum area) Respiratory Respiratory exam: Present normal lung sounds bilaterally; Absent respiratory distress or wheezes Cardiovascular Cardiovascular exam: Present regular rate, normal rhythm and normal heart sounds Neurological Exam Neurological exam: Present alert, oriented X3 and normal gait Medical Decision Making Donaldo Inquiry Pt receiving controlled substance: No Donaldo was queried for this patient: No Vital Signs: 05/30/23 19:46 Temperature 98.2 F Temperature Source Oral Pulse Rate [Radial] 64 Respiratory Rate 19 Blood Pressure [Right Arm] 154/114 H Blood Pressure Mean [Right Arm] 127 Blood Pressure Source [Right Arm] Automatic Cuff Blood Pressure Position [Right Arm] Sitting 02 Sat by Pulse Oximetry 98 Oxygen Delivery Method Room Air Lab Data Lab results reviewed: Yes I reviewed the patient's lab results.
[2023-05-30 20:19] VITALS: BP 154/114; PULSE 64; RESP 19; TEMP 36.8; O2SAT 98
== END 2023-05-30 20:20 | disposition home or self-care (01) ==
PROVIDERS: Emergency Provider Nurse Practitioner; PCP Nurse Practitioner Family
DX: K08.89 Other specified disorders of teeth and supporting structures (principal)
CPT/HCPCS: 99212; 99214; G0463

== ENCOUNTER 2024-02-07 09:57 | Outpatient (RCR) | payer OTHER, SELFPAY | END 2024-03-20 11:05 | disposition home or self-care (01) | LOC: PT 09:57 | PROVIDERS: Visit Provider Internal Medicine | DX: I21.3 ST elevation (STEMI) myocardial infarction of unspecified site (principal) | CPT/HCPCS: 93798 ==

== ENCOUNTER 2024-02-11 11:05 | Outpatient (CLI) | payer OTHER, SELFPAY ==
--- NOTE | 2024-02-11 11:08 | XR_ITS ---
FINAL REPORT CLINICAL HISTORY: right hip pain FINDINGS: RIGHT HIP 3 views of the right hip demonstrate no acute fracture or dislocation. The joint spaces appear normal. There are mild degenerative changes. Soft tissue calcification is seen adjacent to the lesser trochanter. The visualized bony structures are well aligned. No soft tissue abnormality is seen. IMPRESSION: No acute bony abnormality. Reviewed, Interpreted and Dictated by Escobar Alvarez III, MD Transcribed by Martha Castanon Authenticated and [facility]
--- NOTE | 2024-02-11 11:09 | XR_ITS ---
FINAL REPORT CLINICAL HISTORY: PAIN, lbp FINDINGS: 5 views of the lumbar spine were obtained. There is no evidence of fracture or dislocation. There are mild degenerative changes with osteophytes. The vertebral alignment is normal. Disc spaces are preserved. No paraspinous soft tissue abnormalities identified. IMPRESSION: No acute bony abnormality. Reviewed, Interpreted and Dictated by Escobar Alvarez III, MD Transcribed by Martha Castanon Authenticated and [facility]
== END 2024-02-11 23:59 | disposition home or self-care (01) ==
LOC: RAD 11:05
PROVIDERS: PCP Nurse Practitioner Family; Visit Provider Nurse Practitioner Family
DX: M25.551 Pain in right hip (principal)
CPT/HCPCS: 72110; 73502

== ENCOUNTER 2024-04-11 12:38 | Outpatient (CLI) | payer OTHER, SELFPAY ==
--- NOTE | 2024-04-11 12:42 | MR_ITS ---
FINAL REPORT CLINICAL HISTORY: RT HIP PAIN/LUMBAGO W SCIATICA RT. RIGHT LEG PAIN, NUMBNESS AND TINGLING. RIGHT SIDED LOW BACK PAIN. RIGHT BUTTOX PAIN. COMPARISON: None FINDINGS: Multiplanar MR imaging of the right hip was performed without contrast. Mild and moderate degenerative change is present. There is no evidence of fracture or dislocation. There is no evidence of avascular necrosis. No bony mass is identified. There is superior labral degeneration with abnormal morphology, consistent with a tear. There is an adjacent 12 mm in size paralabral cyst. There is prominence of the superior acetabulum, and a pincer type femoroacetabular impingement is not excluded. No significant joint effusion is seen. The tendons are intact. The musculature is intact. No soft tissue mass or cyst is identified. IMPRESSION: Superior labral degeneration with abnormal morphology consistent with a tear, with an associated paralabral cyst. There is a prominent superior acetabulum, and a pincer type SHANDA is not excluded. Reviewed, Interpreted and Dictated by Escobar Alvarez III, MD Transcribed by Fanny Oliveira Authenticated and [facility]
--- NOTE | 2024-04-11 12:42 | MR_ITS ---
FINAL REPORT CLINICAL HISTORY: RIGHT LEG PAIN, NUMBNESS AND TINGLING. RIGHT SIDED LOW BACK PAIN. RIGHT BUTTOX PAIN. FINDINGS: Multiplanar MR imaging of the lumbar spine was performed without contrast. On the sagittal T2-weighted images, disc degeneration is seen at L4-5. The vertebral alignment is normal. No bony mass is identified. There is no evidence of fracture. The conus has an unremarkable appearance. T12-L1: An annular bulge is present with osteophytes. No significant canal stenosis or neural foraminal narrowing is seen. L1-2: An annular bulge is present. There is mild right neural foraminal narrowing. L2-3: An annular bulge is present with bilateral facet arthropathy. Mild bilateral neural foraminal narrowing is seen. L3-4: An annular bulge is present. There is mild bilateral neural foraminal narrowing. L4-5: An annular bulge is present with bilateral facet arthropathy. Postoperative changes are noted on the left. Central soft tissue is present likely representing a disc protrusion which causes bilateral L5 nerve root impingement. There is bilateral lateral recess stenosis. Mild central canal stenosis is seen with an AP diameter of the thecal sac of 8 mm. Moderate bilateral neural foraminal narrowing is seen. L5-S1: An annular bulge is present with bilateral facet arthropathy. No significant neural foraminal narrowing is seen. IMPRESSION: Postoperative changes left L4 5. Central L4-5 soft tissue likely representing a residual or recurrent disc protrusion with bilateral L5 nerve root impingement, moderate neural foraminal narrowing and mild central canal stenosis. Authenticated and [facility]
== END 2024-04-11 23:59 | disposition home or self-care (01) ==
LOC: RAD 12:39
PROVIDERS: PCP Nurse Practitioner Family; Visit Provider Nurse Practitioner Family
DX: M25.551 Pain in right hip (principal); M54.41 Lumbago with sciatica, right side; M79.604 Pain in right leg
CPT/HCPCS: 72148; 73721

== ENCOUNTER 2024-12-08 22:15 | Emergency (ER) | payer OTHER, SELFPAY ==
--- OUTSIDE RECORDS SUMMARY | 2024-12-08 22:27 | XMS_ITS | Encounter Summary ---
Author Organization [facility] Address [address] [place] [address] Care Team Providers Care Lye Bath Operator Name Role Phone Serge Hansen MD Primary Care Provider + [phone] Issac Greenwood APRN, DNP Unavailable [phone] Brianna Patton MD Unavailable [phone] Reason for Visit * Reason Onset Date Comments Med Refill 11/07/2024 Encounter Details Date Type Department Care Team (Late st Contact Info) Description 11/07/2024 Refill [facility] Internal Medicine [address] [place] [address] Brianna Patton MD [address] [place] [address] Social History Tobacco Use Types Packs/Day Years Used Date Smoking Tobacco: Never Smokeless Tobacco: Never Alcohol Use Standard Drinks/Week Comments Yes 1 (1 standard drink = 0.6 oz pure alcohol) This is more like 1 to 2 times a month Humiliation, Afraid, Rape, and Kick questionnair e Answer Date Recorded Within the last year, have y ou been afraid of your partner or ex-partner? No 10/01/2024 Within the last year, have y ou been humiliated or emotionally abused in other ways by your partner or ex-partner? No Within the last year, have y ou been kicked, hit, slapped, or otherwise physically hurt by your partner or ex-partner? No 10/01/2024 Within the last year, have y ou been raped or forced to have any kind of sexual activity by your partner or ex-partner? No 10/01/2024 Social Connection and Isolation Panel Answer Date Recorded In a typical week, how many times do you talk on the phone with family, friends, or neighbors? More than three times a week 01/31/2024 How often do you get togethe r with friends or relatives? More than three times a week 01/31/2024 How often do you attend chur ch or presybeterian services? More than 4 times per year 01/31/2024 Do you belong to any clubs o r organizations such as islam groups, unions, fraternal or athletic groups, or school groups? No 01/31/2024 How often do you attend meet ings of the clubs or organizations you belong to? Never 01/31/2024 Are you , , di vorced, , never , or living with a partner? 01/31/2024 Overall Financial Resource Strain (CARDIA) Answe r Date Recorded How hard is it for you to pa y for the very basics like food, housing, medical care, and heating? Not hard at all 01/29/2024 PHQ-2 Answer Date Recorded Patient Health Questionnaire-2 Score 0 05/21/2024 Hunger Vital Sign Answer Date Recorded Within the past 12 months, y ou worried that your food would run out before you got the money to buy more. Never true 10/02/19 25 Within the past 12 months, t he food you bought just didn't last and you didn't have money to get more. Never true 10/01/2024 PRAPARE - Transportation Answer Date Re corded In the past 12 months, has l ack of transportation kept you from medical appointments or from getting medications? No 09/04 In the past 12 months, has l ack of transportation kept you from meetings, work, or from getting things needed for daily living? No 10/01/2024 Housing Stability Vital Sign Answer Lito e Recorded In the last 12 months, was t here a time when you were not able to pay the mortgage or rent on time? No 01/29/2024 In the last 12 months, how many places have you lived? 1 01/29/2024 In the last 12 months, was t here a time when you did not have a steady place to sleep or slept in a correction (including now)? No 01/29/2024 PHQ-9 Answer Date Recorded Patient Health Questionnaire-9 Score 0 05/21/2024 Housing Stability Vital Sign Answer Lito e Recorded In the last 12 months, was t here a time when you were not able to pay the mortgage or rent on time? No 10/01/2024 In the past 12 months, how m any times have you moved where you were living? 0 10/01/2024 At any time in the past 12 m ont, were you homeless or living in a correction (including now)? No 10/01/2024 Utilities Answer Date Recorded In the past 12 months has th e electric, gas, oil, or water company threatened to shut off services in your home? No 10/01/2024 Sex and Gender Information Value Date Recorded Sex Assigned at Not on file Legal Sex Male 6:04 PM EDT Gender Identity Not on file Sexual Orientation Not on file documented as of this encounter Miscellaneous Notes * Telephone Encounter - Kateryna Andersen PharmD - 11/11/2024 8:23 PM EDT 1 medication(s) has been denied per protocol due to: Duplicate request documented in this encounter Plan of Treatment Upcoming Encounters Date Type Department Care Team (Late st Contact Info) Description 12/31/2024 8:00 AM EDT Office Visit [facility] [place] [address], [address] [place] [address] Erika Cifuentes MD [address] [place] [address] 01/21/2025 3:10 PM EDT Office Visit [facility] [address] [place] [address] Brianna Patton MD [address] [place] [address] documented as of this encounter Visit Diagnoses Not on filedocumented in this encounter Additional Health Concerns Assessment Noted Time PHQ-9 Depression Total Score: 0 05/21/20 1:30 PM EST A fall risk assessment has been complete d for the patient 05/21/2024 1:30 PM EST A Body Mass Index follow-up plan has been documented for the patient 10/01/2024 3:00 PM EDT documented as of this encounter Care Teams Lye Bath Operator Relationship Specialty Start Date End Date Serge Hansen MD [address] [place], [place] [address] PCP - General Internal Medicine 01/28/21 Issac Greenwood APRN, DNP [address] [place] [address] Nurse Practitioner Psychiatry 02/27/24 Brianna Patton MD [address] [address] Consulting Physician Internal Medicine 10/31/24 documented as of this encounter
--- OUTSIDE RECORDS SUMMARY | 2024-12-08 22:27 | XMS_ITS | Encounter Summary ---
Author Organization [facility] Address [address] [place] [address] Care Team Providers Care Watch Parts Inspector Name Role Phone Serge Hansen MD Primary Care Provider + [phone] Issac Greenwood APRN, DNP Unavailable [phone] Brianna Patton MD Unavailable [phone] Encounter Details Date Type Department Care Team (Late st Contact Info) Description 11/07/2024 Orders Only [facility] Internal Medicine [address] [place] [address] Brianna Patton MD [address] [place] [address] Morbid obesity with body mass index (BMI) of 40.0 or higher (CMS/HCC); CRISTY on CPAP Social History Tobacco Use Types Packs/Day Years [...] often do you attend chur ch or alevism services? More than 4 times per year 01/31/2024 Do you belong to any clubs o r organizations such as mormon groups, unions, fraternal or athletic groups, or [...] place to sleep or slept in a fdc (including now)? No 01/29/2024 PHQ-9 Answer Date [...] any time in the past 12 m [facility], were you homeless or living in a fdc (including now)? No 10/01/2024 Utilities Answer Date [...] on file documented as of this encounter Plan of Treatment Upcoming Encounters Date Type Department Care Team (Late st Contact Info) Description 12/31/2024 8:00 AM EDT Office Visit [facility] [place] [address] [place] [address] Erika Cifuentes MD [address] [place] [address] 01/21/2025 3:10 PM EDT Office Visit [facility] [address] [place] [address] Brianna Patton MD [address] [place] [address] documented as of this encounter Visit Diagnoses Diagnosis Morbid obesity with body mass index (BMI) of 40.0 or higher (CMS/HCC) CRISTY on CPAP documented in this encounter Additional Health Concerns Assessment Noted Time PHQ-9 Depression Total Score: 0 05/21/20 24 1:30 PM EST A fall risk assessment has been complete d for the patient 05/21/2024 1:30 PM EST A Body Mass Index follow-up plan has been documented for the patient 10/01/2024 3:00 PM EDT documented as of this encounter Care Teams Watch Parts Inspector Relationship Specialty Start Date End Date Serge Hansen MD [address] [place] [address] PCP - General Internal Medicine 01/28/21 Issac Greenwood APRN, DNP [address] [place] [address] Nurse Practitioner Psychiatry 02/27/24 Brianna Patton MD [address] [facility] [address] [place] [address] Consulting Physician Internal Medicine 10/31/24 documented as of this encounter
--- OUTSIDE RECORDS SUMMARY | 2024-12-08 22:27 | XMS_ITS | Encounter Summary ---
Author Organization [facility] Address [address] [place] [address] Care Team Providers Care Spreader Operator Automatic Name Role Phone Serge Hansen MD Primary Care Provider + [phone] Issac Greenwood APRN, DNP Unavailable [phone] Brianna Patton MD Unavailable [phone] Encounter Details Date Type Department Care Team (Late st Contact Info) Description 11/10/2024 [facility] Internal Medicine [address], [address] [place] [address] Brianna Patton MD [address] [place] [address] Social History Tobacco Use Types [...] often do you attend chur ch or taoist services? More than 4 times per year 01/31/2024 Do you belong to any clubs o r organizations such as mormonism groups, unions, fraternal or athletic groups, or [...] place to sleep or slept in a detention (including now)? No 01/29/2024 PHQ-9 Answer Date [...] were you homeless or living in a detention (including now)? No 10/01/2024 Utilities Answer Date [...] Description 12/31/2024 8:00 AM EDT Office Visit [facility] [place] [address], [address] [place] [address] Erika Cifuentes MD [address] [place] [address] 01/21/2025 3:10 PM EDT Office Visit [facility] [address] [place] [address] Brianna Patton MD [address] [place] [address] documented as of this encounter [...] documented as of this encounter Care Teams Spreader Operator Automatic Relationship Specialty Start Date End Date Serge Hansen MD [address] [place] [address] PCP - General Internal Medicine 01/28/21 Issac Greenwood APRN, DNP [address] [place] [address] Nurse Practitioner Psychiatry 02/27/24 Brianna Patton MD [address] [address] Consulting Physician Internal Medicine 10/31/24 documented as of this encounter
--- OUTSIDE RECORDS SUMMARY | 2024-12-08 22:27 | XMS_ITS | Clinical Summary ---
Author Organization [facility] Address [address] [place] [address] Care Team Providers Care Beauty Artist Name Role Phone Serge Hansen MD Primary Care Provider + [phone] Issac Greenwood APRN, DNP Unavailable [phone] Brianna Patton MD Unavailable [phone] Allergies Active Allergy Reactions Criticality Noted Date Comments Ticagrelor Shortness of breath High 02/27/2024 Medications Magnesium Citrate 200 MG tablet Take 200 mg by mouth 1 (one) time each day. Active aspirin 81 MG chewable tablet Chew 1 tablet (81 mg) 1 (one) time each day. 90 tablet 3 05/21/20 24 025 Active buPROPion XL (Wellbutrin XL) 300 MG 24 hr tablet Take 1 tablet (300 mg) by mouth 1 (one) time each day in the morning. 90 tablet 3 05/21/20 24 Active carvedilol (Coreg) 6.25 MG tablet Take 1 tablet (6.25 mg) by mouth 2 (two) times a day. 180 tablet 3 05/21/20 24 025 Active isosorbide mononitrate ER (Imdur) 30 MG 24 hr tablet Take 1 tablet (30 mg) by mouth 1 (one) time each day. Do not crush or chew. 90 tablet 3 05/21/20 24 Active losartan (Cozaar) 50 MG tablet Take 1 tablet (50 mg) by mouth 1 (one) time each day. 90 tablet 3 05/21/20 24 025 Active rosuvastatin (Crestor) 40 MG tablet Take 1 tablet (40 mg) by mouth every night. 90 tablet 3 05/21/20 24 025 Active Additional Information Patient not taking.Reported on 10/01/2024 prasugrel (Effient) 10 MG tablet Take 1 tablet (10 mg) by mouth 1 (one) time each day. 90 tablet 3 05/21/20 24 Active nitroglycerin (Nitrostat) 0.[address] 1 tablet (0.4 mg) under the tongue every 5 (five) minutes if needed for chest pain. 3 tablet 3 05/21/20 24 Active ezetimibe (Zetia) 10 MG tabletIndications: Coronary artery disease involving napaimute coronary artery of napaimute heart without angina pectoris,Other hyperlipidemia Take 1 tablet (10 mg) by mouth 1 (one) time each day. 30 tablet 11 05/22/20 24 025 Active Additional Information Patient not taking.Reported on 10/01/2024 Evolocumab (Repatha SureClick) 140 MG/ML solution auto-injector Inject 1 mL (140 mg) under the skin every 14 (fourteen) days. 2.1 mL 3 08/26/19 25 Active buPROPion XL (Wellbutrin XL) 150 MG 24 hr tablet 08/14/19 25 Active psyllium (Metamucil) 58.6 % packet Take 1 packet by mouth daily. Active Tirzepatide-Weight Management (Zepbound) 2.5 MG/0.5ML solution auto-injectorIndic ations:Morbid obesity with body mass index (BMI) of 40.0 or higher (CMS/HCC),CRISTY on CPAP Inject 2.5 mg under the skin 1 time per week. 0.5 mL 1 11/08/19 25 Active naltrexone (ReVia) 50 MG tablet Take 0.5 tablets by mouth daily. 30 tablet 11/13/19 25 Active naltrexone (ReVia) 50 MG tablet Take 0.5 tablets by mouth daily. 30 tablet 10/03/19 25 025 Discontin ued(Reord er) Active Problems Problem Noted Date Diagnosed Date Class III obesity with body mass index (BMI) of 40.0 or higher 02/12/2024 NSTEMI (non-ST elevated myocardial infarction) 0 02/02/2024 STEMI (ST elevation myocardial infarction) 01/27 Encounters Date Type Department Care Team Description 11/10/2024 Refill [facility] [address], [address] [place] [address] Brianna Patton MD 11/07/2024 Orders Only [facility] [address] [place] [phone] Brianna Patton MD Morbid obesity with body mass index (BMI) of 40.0 or higher (CMS/HCC); CRISTY on CPAP 11/07/2024 Refill [facility] [address] [place] [address] Brianna Patton MD 10/02/2024 Orders Only [facility] [address] [place] [phone] Brianna Patton MD 10/01/2024 2:00 PM EDT Office Visit [facility] [address] [place] [phone] Brianna Patton MD CRISTY on CPAP (Primary Dx); Morbid obesity with body mass index (BMI) of 40.0 or higher (CMS/HCC); Binge eating; Depressed mood 10/01/2024 Telephone [facility] [address] [place] [address] Brianna Patton MD 10/01/2024 Telephone [facility] [address] [place] [phone] Manny Barros, PharmD Naltrexone dosing 10/01/2024 Travel from Last 3 Months Immunizations Immunization Administration Dates Next Due Hep B, adult 02/28/2001,08/03/2000,06/21/2000 Family History Medical History Relation Name Comments Diabetes Father Blake Diabetes type II Father Blake Heart attack Father Blake Diabetes type II Maternal Grandfather Bill Obesity Maternal Grandfather Bill Diabetes type II Maternal Grandmother Zenia Obesity Maternal Grandmother Zenia Stroke Maternal Grandmother Zenia Cancer Mother Linda Diabetes Mother Linda Diabetes type II Mother Linda Obesity Mother Linda Diabetes type II Mother's Brother 1 Giovanni Obesity Mother's Brother 1 Giovanni Diabetes type II Mother's Brother 2 Pietro Obesity Mother's Brother 2 Pietro Relation Name Status Comments Father Blake Maternal Grandfather Alexandro Maternal Grandmother Zenia Mother Linda Mother's Brother 1 Giovanni Mother's Brother 2 Pietro Social History Tobacco Use Types Packs/Day Years [...] often do you attend chur ch or christianity services? More than 4 times per year 01/31/2024 Do you belong to any clubs o r organizations such as taoist groups, unions, fraternal or athletic groups, or [...] place to sleep or slept in a assisted (including now)? No 01/29/2024 PHQ-9 Answer Date [...] any time in the past [address] [facility], were you homeless or living in a assisted (including now)? No 10/01/2024 Utilities Answer Date Recorded In the past 12 months has th e electric, gas, oil, or water company threatened to shut off services in your home? No 10/01/2024 Sex and Gender Information Value Date Recorded Sex Assigned at Not on file Legal Sex Male 6:04 PM EDT Gender Identity Not on file Sexual Orientation Not on file Last Filed Vital Signs Vital Sign Reading Time Taken Comments Blood Pressure 147/95 10/01/2024 1:53 PM EDT Pulse 75 10/01/2024 1:53 PM EDT Temperature 36.4 C (97.5 F) 10/01/2024 1:44 PM EDT Respiratory Rate 18 10/01/2024 1:44 PM EDT Oxygen Saturation 98% 05/21/2024 1:27 PM EST Inhaled Oxygen Concentration - - Weight 167 kg (367 lb 4.6 oz) 10/01/2024 1:44 PM EDT Height 185.4 cm (6' 0.99 ) 10/01/2024 1:44 PM ED T Body Mass Index 48.47 10/01/2024 1:44 PM EDT Plan of Treatment Upcoming Encounters Date Type Department Care Team (Late st Contact Info) Description 12/31/2024 8:00 AM EDT Office Visit [facility] [address], [address] [place] [phone] Erika Cifuentes MD [address] [place], [place] [phone] 01/21/2025 3:10 PM EDT Office Visit [facility] [address] [place] [address] Brianna Patton MD [address] [place] [address] Health Maintenance Due Date Last Done Comments [facility]-HIV Screening 1975 [facility]-Hepatitis C Screening 1975 [facility]-/Child/Adol SDOH Screenings 1975 [facility]-DTaP,Tdap,and Td Vaccines (1 - Tdap) 1994 [facility]-Pneumococcal Vaccine: Pediatrics (0 to 5 Years) and At-Risk Patients (6 to 49 Years) (1 of 2 - PCV) 1994 CT Colonography 2020 Colonoscopy 2020 FIT-DNA 2020 FIT 2020 FOBT 2020 Sigmoidoscopy 2020 [facility]-Colorectal Cancer Screening 2020 [id number] Vaccine ( season) 2024 [facility]-Influenza Vaccine (#1) 2025 [facility]- SDOH Screenings 04/02/2025 [facility]-Adult SDOH Screenings 04/02/2025 10/01/2024 [facility]-Depression Screening 05/21/2025 05/21/2024, 05/04 [facility]-Zoster Vaccines (1 of 2) 2025 [facility]-Hepatitis B Vaccines Completed 001, 08/03/2000, 06/21/2000 [facility]-Obesity Intervention Completed 025, 05/21/2024, 05/06/2024, Additional history exists HPV Vaccines Aged Out No longer eligi ble based on patient's age to complete this topic [facility]-HIB Vaccines Aged Out No longer e ligible based on patient's age to complete this topic [facility]-Hepatitis A Vaccines Aged Out No longer eligible based on patient's age to complete this topic [facility]-IPV Vaccines Aged Out No longer e ligible based on patient's age to complete this topic [facility]-Rotavirus Vaccines Aged Out No lo nger eligible based on patient's age to complete this topic Medical Devices Implanted Type Area Chief Ultrasound Technologist Device Identifier Shelf Expiration Date Model / Serial / Lot Stent [employer] Rx 4.5mm X 30mm - [id number] Implanted:Qty: 1 on 01/28/2024 by Deangelo LombadroAerial InstallerMD at [id number] 10/08/2026 [id number] UX / / [id number] 001. Insurance [facility] Advance Directives * Full Code (Latest Code Status on File) Date Activated Date Inactivated Comments 02/02/2024 11:09 PM 02/04/2024 2:31 PM Question Answer Comments Patient has decision-making capacity? Yes * Full Code Date Activated Date Inactivated Comments 01/28/2024 11:22 PM 01/30/2024 4:55 PM Question Answer Comments Patient has decision-making capacity? Yes Care Teams Beauty Artist Relationship Specialty Start Date End Date Serge Hansen MD [address] [place] [address] PCP - General Internal Medicine 01/28/21 Issac Greenwood, FEATHER RENOVATOR, DNP [address] [place] [address] Nurse Practitioner Psychiatry 02/27/24 Brianna Patton MD [address] [place] [address] Consulting Physician Internal Medicine 10/31/24
--- NOTE | 2024-12-08 22:31 | XR_ITS ---
PROCEDURE INFORMATION: Exam: XR Right Foot Exam date and time: 12/08/2024 10:50 PM Age: 49 years old Clinical indication: Pain; Toes; Right; Additional info: Fall, right 3rd toe pain TECHNIQUE: Imaging protocol: Radiologic exam of the right foot. Views: 1 or 2 views. COMPARISON: No relevant prior studies available. FINDINGS: Bones/joints: There is an oblique nondisplaced fracture of the mid shaft 3rd proximal phalanx. The foot is normally aligned. The joint spaces are intact. Soft tissues: Normal. IMPRESSION: Nondisplaced oblique fracture mid shaft 3rd proximal phalanx
--- NOTE | 2024-12-08 22:31 | CT_ITS ---
PROCEDURE INFORMATION: Exam: CT Pelvis Without Contrast, Skeleton Exam date and time: 12/08/2024 10:49 PM Age: 49 years old Clinical indication: Pelvic pain; Additional info: Fall, right pelvic pain TECHNIQUE: Imaging protocol: Computed tomography of the pelvis without contrast. Exam focused on the skeleton. Radiation optimization: All CT scans at this facility use at least one of these dose optimization techniques: automated exposure control; mA and/or kV adjustment per patient size (includes targeted exams where dose is matched to clinical indication); or iterative reconstruction. COMPARISON: CR XR HIP RT 2-3V W/PELVIS 02/11/2024 11:20 AM FINDINGS: Bones/joints: There is no acute fracture. There are degenerative changes of the hips moderate on the right and mild on the left. Moderate degenerative changes of the SI joints are noted. Soft tissues: Unremarkable. IMPRESSION: No acute findings.
--- NOTE | 2024-12-08 22:31 | CT_ITS ---
PROCEDURE INFORMATION: Exam: CT Lumbar Spine Without Contrast Exam date and time: 12/08/2024 10:46 PM Age: 49 years old Clinical indication: Low back pain; Additional info: Fall, mid lower back pain TECHNIQUE: Imaging protocol: Computed tomography of the lumbar spine without contrast. Radiation optimization: All CT scans at this facility use at least one of these dose optimization techniques: automated exposure control; mA and/or kV adjustment per patient size (includes targeted exams where dose is matched to clinical indication); or iterative reconstruction. COMPARISON: MR LUMBAR SPINE WO CON 04/11/2024 1:05 PM FINDINGS: Bones/joints: No acute fracture. Normal alignment. There is diffuse mild degenerative disc disease. Moderate facet arthropathy is noted at L4-L5 and L5-S1. There is annular disc bulge at L4-L5 with moderate calcification of the annulus and mild this, osteophyte formation. This causes at least mild central canal stenosis. No significant neural foraminal narrowing. Soft tissues: Unremarkable. IMPRESSION: No acute lumbar spine fracture.
[2024-12-08 22:33] VITALS: BP 156/36; PULSE 74; RESP 16; TEMP 36.8; O2SAT 98; BMI 44.9
--- NOTE | 2024-12-08 22:33 | HMH.EDGENADL ---
Discharge Plan Disposition Patient Disposition: Home, Self-Care Prescriptions Prescriptions: New methocarbamol 500 mg tablet 1,000 mg PO Q6H PRN (Reason: pain) Qty: 30 0RF No Action bupropion HCl 150 mg tablet extended release 24 hr 400 mg PO DAILY losartan 50 mg tablet 50 mg PO DAILY carvedilol 6.25 mg tablet 6.25 mg PO BID isosorbide mononitrate 30 mg tablet extended release 24 hr 30 mg PO DAILY nitroglycerin 0.4 mg tablet, sublingual 0.4 mg sublingual NEEDED PRN (Reason: Chest Pain) naltrexone 50 mg Tablet 25 mg PO DAILY aspirin 81 mg Tablet,Chewable 81 mg PO DAILY psyllium 3.4 gram/5.8 gram Powder 58.6 g PO DAILY prasugrel HCl 10 mg Tablet 10 mg PO DAILY Repatha Syringe 140 mg/mL Syringe 140 mg SQ WEEKLY Referrals Follow up/Referrals: Serge Hansen MD [Primary Care Provider, Internal Medicine] - See instructions Ellyn Banks DPM [Staff Physician, Podiatry] - See instructions Activity Restrictions/Add. Instructions Additional Instructions/Restrictions: Please take Tylenol and ibuprofen as needed for pain. I also sent a prescription for Robaxin to [facility]. Recommending trena taping your toes to help keep them stable. Recommend following up with our residential remodeling subcontractor Dr. Banks, especially if you are having any issues with pain/healing. Clinical Impressions Clinical Impression: Fracture of proximal phalanx of lesser toe of right foot Qualifiers: Encounter type: initial encounter Fracture type: closed Fracture alignment: nondisplaced Qualified Code(s): S92.514A - Nondisplaced fracture of proximal phalanx of right lesser toe(s), initial encounter for closed fracture Print Language Print Language: [place] Discharge ED Provider: Jose Kapadia General Adult HPI <Marcelino Almanza MD - Last Filed: 12/09/24 01:52> General Chief complaint: Fall Stated complaint: AO 12/08/24 2100 injury right middle toe,right leg Time Seen by Provider: 12/08/24 22:22 History of Present Illness HPI narrative: Garret Iqbal is a 49-year-old male with a past medical history of lumbar discotomy, gout, SI joint dysfunction currently receiving physical therapy, who presents to the emergency department for complaints of lower back pain and right toe pain after a fall. Patient states that he was carrying a bag of garbage down the stairs when he tripped 3 stairs from the bottom and states that his right leg fell underneath him. He then hit his back on the ground. He denies any head trauma or loss of consciousness. He has been able to bear weight with a limp while using a cane on his right lower extremity ever since but states that is painful to do so. He took an 800 mg ibuprofen after this happened but states that the pain in his back is severe. He states that the pain starts in his hip area and runs to his right groin. Related Data Home Medications ?Medication ?Instructions ?Recorded ?Confirmed aspirin 81 mg chewable tablet 81 mg PO DAILY 12/09/24 12/09/24 bupropion HCl 150 mg 24 hr tablet, 400 mg PO DAILY 12/09/24 12/09/24 extended release carvedilol 6.25 mg tablet 6.25 mg PO BID 12/09/24 12/09/24 evolocumab 140 mg/mL subcutaneous 140 mg SQ WEEKLY 12/09/24 12/09/24 syringe (Repatha Syringe) isosorbide mononitrate 30 mg 30 mg PO DAILY 12/09/24 12/09/24 tablet,extended release 24 hr losartan 50 mg tablet 50 mg PO DAILY 12/09/24 12/09/24 naltrexone 50 mg tablet 25 mg PO DAILY 12/09/24 12/09/24 nitroglycerin 0.4 mg sublingual 0.4 mg sublingual NEEDED PRN 12/09/24 12/09/24 tablet Chest Pain prasugrel HCl 10 mg tablet 10 mg PO DAILY 12/09/24 12/09/24 psyllium 3.4 gram/5.8 gram oral 58.6 g PO DAILY 12/09/24 12/09/24 powder Previous Rx's ?Medication ?Instructions ?Recorded methocarbamol 500 mg tablet 1,000 mg (2 x 500 mg) PO Q6H PRN 12/09/24 pain #30 tabs Allergies Allergy/AdvReac Type Severity Reaction Status Date / Time No Known Allergies Allergy Verified 05/22/23 10:32 [facility] <Marcelino Almanza MD - Last Filed: 12/09/24 01:52> [facility] Disclaimer: The information contained in this section may have been updated after the patient was seen, as this information can be updated by other users. Medical History (Updated 12/09/24 @ 00:27 by Jose Kapadia MD) History of heart attack Social History Smoking Status: Never smoker alcohol intake: current current occupational status: other Travel in the last 8 weeks?: None Have you lived/traveled outside [place] in past 30 days?: No Contact w/someone who lives/traveled outside US past 30 days?: No Exposure to someone with infectious disease in past 14 days?: No Do you have a fever (greater than 100.4 F or 38 C)?: No Have you tested positive for COVID-19?: No Exposed to someone with COVID-19 in past 14 days?: No Do you have a sore throat?: No Do you have a cough?: No Do you have any weakness?: No Do you have any diarrhea?: No Are you experiencing any unusual bleeding?: No Do you have any muscle aches/pain?: No Do you have any abdominal pain?: No Are you experiencing loss of taste or smell?: No <Marcelino Almanza MD - Last Filed: 12/09/24 01:52> ROS Obtained: Yes Systems reviewed as appropriate & no additional complaints except as documented Physical Exam <Marcelino Almanza MD - Last Filed: 12/09/24 01:52> General General appearance: alert, in no apparent distress and obese Head Head exam: atraumatic Eye Eye exam: Present normal appearance ENT ENT exam: Present normal external ear exam Neck Neck exam: Present full ROM Chest Chest inspection: Present symmetric chest wall rise Respiratory Respiratory exam: Present normal lung sounds bilaterally; Absent respiratory distress Cardiovascular Cardiovascular exam: Present regular rate and normal rhythm Abdominal Exam Abdominal exam: Present soft; Absent tenderness or guarding exam: Present deferred Extremities Exam Extremities exam: Present normal inspection and other (Right lower extremity: Tenderness to palpation to the distal phalanx of the third digit. 2+ DP and PT pulses. Less than 2-second capillary refill. Pelvis is stable.) Back Exam Back exam: Present normal inspection; Absent tenderness (No C-T-L spine tenderness or stepoffs) Neurological Exam Neurological exam: Present alert and oriented X3 Psychiatric Psychiatric exam: Present normal affect Skin Skin exam: Present warm and dry Medical Decision Making <Marcelino Almanza MD - Last Filed: 12/09/24 01:52> Medical Records Screening: Per USPSTF and CDC recommendations, given the prevalence of disease in our region, it is our hospital?s policy to screen for HIV and viral Hepatitis for all patients aged 18 and over and those with ongoing risk factors. Donaldo Inquiry Pt receiving controlled substance: No Vital Signs: 12/08/24 22:33 12/08/24 23:00 12/08/24 23:30 Temperature 98.2 F Temperature Source Oral Pulse Rate 65 71 Pulse Rate [Left Radial] 74 Respiratory Rate 16 18 Blood Pressure 142/85 H 123/77 Blood Pressure [Right Arm] 156/36 H Blood Pressure Mean 92 Blood Pressure Mean [Right Arm] 76 Blood Pressure Source Blood Pressure Source [Right Arm] Automatic Cuff Blood Pressure Position [Right Arm] Supine 02 Sat by Pulse Oximetry 98 95 93 L Oxygen Delivery Method Room Air 12/08/24 23:45 12/09/24 00:00 12/09/24 00:31 Temperature Temperature Source Pulse Rate 63 69 64 Pulse Rate [Left Radial] Respiratory Rate 18 Blood Pressure 133/75 139/82 Blood Pressure [Right Arm] Blood Pressure Mean Blood Pressure Mean [Right Arm] Blood Pressure Source Blood Pressure Source [Right Arm] Blood Pressure Position [Right Arm] 02 Sat by Pulse Oximetry 95 93 L 96 Oxygen Delivery Method Room Air 12/09/24 00:44 Temperature 98.0 F Temperature Source Oral Pulse Rate 82 Pulse Rate [Left Radial] Respiratory Rate 18 Blood Pressure 139/78 Blood Pressure [Right Arm] Blood Pressure Mean Blood Pressure Mean [Right Arm] Blood Pressure Source Automatic Cuff Blood Pressure Source [Right Arm] Blood Pressure Position [Right Arm] 02 Sat by Pulse Oximetry Oxygen Delivery Method Room Air Orders (Tests/Meds): ED MEDICATIONS Discontinued Medications Generic Name Dose Route Start Last Admin Trade Name Freq PRN Reason Stop Dose Admin Methocarbamol 1,000 mg 12/09/24 00:27 12/09/24 00:40 Methocarbamol 500mg Tablet PO 12/09/24 00:28 1,000 mg ONCE ONE Administration Oxycodone HCl 5 mg 12/08/24 22:33 12/08/24 23:17 Oxycodone 5mg Immediate Release Tablet PO 12/08/24 22:34 5 mg ONCE ONE Administration ORDERS Category Date Time Status CT bony pelvis Stat Cat Scan 12/08/24 22:[address] lumbar spine wo con Stat Cat Scan 12/08/24 22:31 Completed Foot XR right 2 views [XR foot RT 2V] Stat Exams 12/08/24 22:31 Completed Medical Decision Narrative: Garret Iqbal is a 49-year-old male with a past medical history of lumbar discotomy, gout, SI joint dysfunction currently receiving physical therapy, who presents to the emergency department for complaints of lower back pain and right toe pain after a fall. Patient states that he was carrying a bag of garbage down the stairs when he tripped 3 stairs from the bottom and states that his right leg fell underneath him. He then hit his back on the ground. He denies any head trauma or loss of consciousness. He has been able to bear weight with a limp while using a cane on his right lower extremity ever since but states that is painful to do so. He took an 800 mg ibuprofen after this happened but states that the pain in his back is severe. He states that the pain starts in his hip area and runs to his right groin. On arrival, patient is mildly hypertensive, heart rate within normal limits, breathing comfortably on room air with appropriate oxygen saturation. Afebrile. Physical exam, stated above, revealed an uncomfortable but overall well-appearing male who is nontoxic. He has tenderness over his right third digit. Pulses intact to bilateral lower extremities. He has no tenderness to direct palpation of the right hip or thigh. Pelvis is stable. He has no midline C/T/L-spine tenderness. No evidence of head trauma. He has positive straight leg raise on the left with pain in the lower back with passive flexion of the left lower extremity at the hip. Differential diagnosis includes, but is not limited to: Lumbar spine fracture, herniated disc, sciatica, fracture, dislocation, low concern for cauda equina as patient does not have any red flag symptoms. Workup in the emergency department included: Right foot x-rays, lumbar spine CT without contrast, CT bony pelvis without contrast. Lab work was considered, however given the nature of patient's fall, is felt that these are not indicated at this time as they would not change ED management. Patient was given 5 mg of oxycodone for pain. X-ray imaging interpreted by me personally demonstrated a nondisplaced oblique fracture of the midshaft of the third proximal phalanx of the right foot. CT imaging is pending at this time. Patient's care was handed off to the oncoming physician, Dr. Kapadia, pending completion of his workup. <Jose Kapadia MD - Last Filed: 12/09/24 02:35> Vital Signs: 12/08/24 22:33 12/08/24 23:00 12/08/24 23:30 Temperature 98.2 F Temperature Source Oral Pulse Rate 65 71 Pulse Rate [Left Radial] 74 Respiratory Rate 16 18 Blood Pressure 142/85 H 123/77 Blood Pressure [Right Arm] 156/36 H Blood Pressure Mean 92 Blood Pressure Mean [Right Arm] 76 Blood Pressure Source Blood Pressure Source [Right Arm] Automatic Cuff Blood Pressure Position [Right Arm] Supine 02 Sat by Pulse Oximetry 98 95 93 L Oxygen Delivery Method Room Air 12/08/24 23:45 12/09/24 00:00 12/09/24 00:31 Temperature Temperature Source Pulse Rate 63 69 64 Pulse Rate [Left Radial] Respiratory Rate 18 Blood Pressure 133/75 139/82 Blood Pressure [Right Arm] Blood Pressure Mean Blood Pressure Mean [Right Arm] Blood Pressure Source Blood Pressure Source [Right Arm] Blood Pressure Position [Right Arm] 02 Sat by Pulse Oximetry 95 93 L 96 Oxygen Delivery Method Room Air 12/09/24 00:44 Temperature 98.0 F Temperature Source Oral Pulse Rate 82 Pulse Rate [Left Radial] Respiratory Rate 18 Blood Pressure 139/78 Blood Pressure [Right Arm] Blood Pressure Mean Blood Pressure Mean [Right Arm] Blood Pressure Source Automatic Cuff Blood Pressure Source [Right Arm] Blood Pressure Position [Right Arm] 02 Sat by Pulse Oximetry Oxygen Delivery Method Room Air Orders (Tests/Meds): ED MEDICATIONS Discontinued Medications Generic Name Dose Route Start Last Admin Trade Name Freq PRN Reason Stop Dose Admin Methocarbamol 1,000 mg 12/09/24 00:27 12/09/24 00:40 Methocarbamol 500mg Tablet PO 12/09/24 00:28 1,000 mg ONCE ONE Administration Oxycodone HCl 5 mg 12/08/24 22:33 12/08/24 23:17 Oxycodone 5mg Immediate Release Tablet PO 12/08/24 22:34 5 mg ONCE ONE Administration ORDERS Category Date Time Status CT bony pelvis Stat Cat Scan 12/08/24 22:[address] lumbar spine wo con Stat Cat Scan 12/08/24 22:31 Completed Foot XR right 2 views [XR foot RT 2V] Stat Exams 12/08/24 22:31 Completed Medical Decision Narrative: Garret Iqbal is a 49-year-old male with a past medical history of lumbar discotomy, gout, SI joint dysfunction currently receiving physical therapy, who presents to the emergency department for complaints of lower back pain and right toe pain after a fall. Patient states that he was carrying a bag of garbage down the stairs when he tripped 3 stairs from the bottom and states that his right leg fell underneath him. He then hit his back on the ground. He denies any head trauma or loss of consciousness. He has been able to bear weight with a limp while using a cane on his right lower extremity ever since but states that is painful to do so. He took an 800 mg ibuprofen after this happened but states that the pain in his back is severe. He states that the pain starts in his hip area and runs to his right groin. On arrival, patient is mildly hypertensive, heart rate within normal limits, breathing comfortably on room air with appropriate oxygen saturation. Afebrile. Physical exam, stated above, revealed an uncomfortable but overall well-appearing male who is nontoxic. He has tenderness over his right third digit. Pulses intact to bilateral lower extremities. He has no tenderness to direct palpation of the right hip or thigh. Pelvis is stable. He has no midline C/T/L-spine tenderness. No evidence of head trauma. He has positive straight leg raise on the left with pain in the lower back with passive flexion of the left lower extremity at the hip. Differential diagnosis includes, but is not limited to: Lumbar spine fracture, herniated disc, sciatica, fracture, dislocation, low concern for cauda equina as patient does not have any red flag symptoms. Workup in the emergency department included: Right foot x-rays, lumbar spine CT without contrast, CT bony pelvis without contrast. Lab work was considered, however given the nature of patient's fall, is felt that these are not indicated at this time as they would not change ED management. Patient was given 5 mg of oxycodone for pain. X-ray imaging interpreted by me personally demonstrated a nondisplaced oblique fracture of the midshaft of the third proximal phalanx of the right foot. CT imaging is pending at this time. Patient's care was handed off to the oncoming physician, Dr. Kapadia, pending completion of his workup. Steffi TRIMBLE: I assumed care of the patient at the time of handoff from the prior provider. On reassessment, CT imaging shows no evidence of acute traumatic injury. Patient reports that he feels like it could be muscle related. Patient was given dose and prescription for muscle relaxer. His fractured toe was trena taped to the second digit and patient placed in a hard soled shoe. He was given referral to Dr. Banks's office. Patient was discharged in stable condition with return precautions. Critical Care <Marcelino Almanza MD - Last Filed: 12/09/24 01:52> Critical Care Time Critical Care Time: No
[2024-12-08 23:00] VITALS: BP 142/85; PULSE 65; O2SAT 95
[2024-12-08] MEDS: OXYCODONE 5MG IMMEDIATE RELEASE TABLET 5 MG PO (23:17)
[2024-12-08 23:30] VITALS: BP 123/77; PULSE 71; RESP 18; O2SAT 93
[2024-12-08 23:45] VITALS: PULSE 63; RESP 18; O2SAT 95
[2024-12-09] VITALS: BP 133/75; PULSE 69; O2SAT 93
[2024-12-09 00:31] VITALS: BP 139/82; PULSE 64; O2SAT 96
[2024-12-09] MEDS: METHOCARBAMOL 500MG TABLET 1000 MG PO (00:40)
--- NOTE | 2024-12-09 00:40 | PC.NURSE ---
2nd & 3rd toes on right foot taped together and foot was placed in a hard soled post-op shoe.
[2024-12-09 00:44] VITALS: BP 139/78; PULSE 82; RESP 18; TEMP 36.7
== END 2024-12-09 00:45 | disposition home or self-care (01) ==
PROVIDERS: Emergency Provider Emergency Medicine; PCP Internal Medicine Adolescent Medicine
DX: S92.514A Nondisplaced fracture of proximal phalanx of right lesser toe(s), initial encounter for closed fracture (principal); M54.50 Low back pain, unspecified; W10.8XXA Fall (on) (from) other stairs and steps, initial encounter
CPT/HCPCS: 72131; 72192; 73620; 99285

== ENCOUNTER 2025-02-16 08:54 | Outpatient (CLI) | payer OTHER, SELFPAY ==
--- OUTSIDE RECORDS SUMMARY | 2024-12-31 08:00 | XMS_ITS | Encounter Summary ---
Author Organization [facility] Address [address] [place] [address] Care Team Providers Care Spark Plug Tester Name Role Phone Serge Hansen MD Primary Care Provider + [phone] Issac Greenwood APRN, [facility] Unavailable [phone] Brianna Patton MD Unavailable [phone] Reason for Referral * Consultation (Routine) - Authorized Specialty Diagnoses / Procedures Referred By Contac t Referred To Contact Diagnoses ST elevation myocardial infarction involving right coronary artery (CMS/HCC) Rafita Milner MD [address] [place] [address] Phone: tel: fax: Referral ID Status Reason Start Date Expiration Date V isits Requested Visits Authorized [id number] Authorized 12/31/2024 07/02/2026 1 1 Reason for Visit * Reason Comments Coronary artery disease involving [place] coronary artery of ASCVD (arteriosclerotic cardiovascular d isease) Encounter Details Date Type Department Care Team (Latest Contact Info) Description 12/31/2024 8:00 AM EDT Office Visit [facility] [place] [address] [facility], [address] [place] [address] Erika Cifuentes MD [address] [place] [address] ST elevation myocardial infarction involving right coronary artery (CMS/HCC) (Primary Dx); Essential hypertension; Hyperlipidemia, unspecified hyperlipidemia type Social History Tobacco Use Types Packs/Day Years [...] often do you attend chur ch or jehovah's witness services? More than 4 times per year 01/31/2024 Do you belong to any clubs o r organizations such as jain groups, unions, fraternal or athletic groups, or [...] Answer Date Recorded Patient Health Questionnaire-2 Score 2 12/31/2024 Hunger Vital Sign Answer Date Recorded Within [...] Answer Date Recorded Patient Health Questionnaire-9 Score 8 12/31/2024 Housing Stability Vital Sign Answer Lito e Recorded In the last 12 months, was t here a time when you were not able to pay the mortgage or rent on time? No 10/01/2024 In the past 12 months, how m any times have you moved where you were living? 0 10/01/2024 At any time in the past 12 m [facility], were you homeless or living in a fdc (including now)? No 10/01/2024 AUDIT-C Answer Date Recorded Q1: How often do you have a drink containing alcohol? Never 12/31/2024 Q2: How many drinks containi ng alcohol do you have on a typical day when you are drinking? Patient does not drink Q3: How often do you have si x or more drinks on one occasion? Never 12/31/2024 Utilities Answer Date Recorded In the past 12 months has th e [employer], gas, oil, or water company threatened to shut off services in your home? No 10/01/2024 Sex and Gender Information Value Date Recorded Sex Assigned at Not on file Legal Sex Male 6:04 PM EDT Gender Identity Not on file Sexual Orientation Not on file documented as of this encounter Last Filed Vital Signs Vital Sign Reading Time Taken Comments Blood Pressure 137/91 12/31/2024 7:51 AM EDT Pulse 66 12/31/2024 7:51 AM EDT Temperature 36.6 C (97.9 F) 12/31/2024 7:43 AM EDT Respiratory Rate 17 12/31/2024 7:43 AM EDT Oxygen Saturation 97% 12/31/2024 7:43 AM EDT Inhaled Oxygen Concentration - - Weight 160 kg (351 lb 13.7 oz) 12/31/2024 7:43 A M EDT Height 182.9 cm (6') 12/31/2024 7:43 AM EDT Body Mass Index 47.72 12/31/2024 7:43 AM EDT documented in this encounter Functional Status * AUDIT-C Score Answer Date of Assessment Author 0 12/31/2024 7:45 AM EDT Jeni Do * Question Answer Date of Assessment Author Q1: How often do you have a drink containing alcohol? Never 12/31/2024 7:45 AM EDT Jeni Do Q2: How many drinks containing alcohol do you have on a typical day when you are drinking? Patient does not drink 12/31/2024 7:45 AM EDT Jeni Do Q3: How often do you have six or more drinks on one occasion? Never 12/31/2024 7:45 AM EDT Jeni Do * Over the past 2 weeks, how often have you been bothered by any of the following problems? Question Answer Date of Assessment Author Little interest or pleasure in doing things Several days 12/31/2024 8:48 AM EDT Jeni Do Feeling down, depressed, or hopeless Several days 12/31/2024 8:48 AM EDT Jeni Do Patient Health Questionnaire -2 Score 2 12/31/2024 8:48 AM EDT Jeni Do * Question Answer Date of Assessment Author Trouble falling or staying asleep, or sleeping too much Several days 12/31/2024 8:48 AM EDT Jeni Do Feeling tired or having benny le energy Several days 12/31/2024 8:48 AM EDT Jeni Do Poor appetite or overeating Several days 12/31/2024 8: 48 AM EDT Jeni Do Feeling bad about yourself - or that you are a failure or have let yourself or your family down Not at all 12/31/2024 8:48 AM EDT Jeni Teran Trouble concentrating on thi ngs, such as reading the newspaper or watching television Several days 12/31/2024 8:48 AM EDT Jeni Do Moving or speaking so slowly that other people could have noticed? Or the opposite - being so fidgety or restless that you have been moving around a lot more than usual. Several days 12/31/2024 8:48 AM EDT Jeni Do Thoughts that you would be b luz marina off or hurting yourself in some way Several days 12/31/2024 8:48 AM EDT Jeni Do Patient Health Questionnaire -9 Score 8 12/31/2024 8:48 AM EDT Jeni Do * If you checked off any problems on this questionnaire so far, Question Answer Date of Assessment Author How difficult have these problems made it for you to do your work, take care of things at home, or get along with other people? Somewhat difficult 12/31/2024 8:48 AM EDT Jeni Do * How difficult have these problems made it for you to do your work, take care of things at home, or get along with other people? Answer Date of Assessment Author Somewhat difficult 12/31/2024 8:48 AM EDT Jeni Flowers documented as of this encounter Miscellaneous Notes * Addendum Note - Rafita Milner MD - 12/31/2024 8:00 AM EDTAddended by: RAFITA MILNER on: 01/03/2025 09:11 AM Modules accepted: Level of Service * Progress Notes - Erika Cifuentes MD - 12/31/2024 8:00 AM EDT Images from the original note were not included. Cardiology Clinic Note Chief Complaint: CAD follow up History of Present Illness Garret Iqbal is a 49 y.o. male with a past medical history notable for HTN, HLD, and CAD s/p PCI who presents for follow up visit. Patient last seen by Dr. Milner 02/2024. Patient had STEMI presentation 02/2024 and underwent PCI to RCA. He had non-obstructive disease in LAD and distal RCA. Since last visit patient was able to start Repatha given LDL was persistently above goal. Planning for repeat lab work today. He had to stop statin given persistent muscle pain. He reports anxiety especially regarding his prior heart attach and previously saw Issac Greenwood, however, had to stop given not covered by insurance. He is now going to try to get in with another psychiatrist where his significant other works. He denies any leg swelling. He has switched jobs and now has less stressful days. Home BP has been better controlled than in office readings, he is going to start keeping a log at home 3 times a week so we can better assess anduptitrate BP medications if needed. He also established with weight management clinic and has been on naltrexone. He has lost ~20lbs (from 270). The following portions of the chart were reviewed this encounter and updated as appropriate: PMH, medications. Review of Systems 14 point review of systems performed, pertinent positives documented in the HPI, and remaining reviewed systems are negative. Objective Visit Vitals BP (!) 137/91 (BP Location: Right arm, Patient Position: Sitting, BP Cuff Size: Adult) Pulse 66 Temp 36.6 ??C (97.9 ??F) (Oral) Resp 17 Ht 1.829 m (6') Wt 160 kg (351 lb 13.7 oz) SpO2 97% BMI 47.72 kg/m?? Smoking Status Never BSA 2.85 m?? Physical Exam Physical Exam Constitutional: General: He is not in acute distress. Appearance: He is not toxic-appearing. HENT: Head: Normocephalic and atraumatic. Eyes: General: No scleral icterus. Conjunctiva/sclera: Conjunctivae normal. Cardiovascular: Rate and Rhythm: Normal rate and regular rhythm. Heart sounds: No murmur heard. Pulmonary: Effort: Pulmonary effort is normal. Breath sounds: Normal breath sounds. Musculoskeletal: Right lower leg: No edema. Left lower leg: No edema. Skin: Findings: No lesion or rash. Neurological: Mental Status: He is alert and oriented to person, place, and time. Mental status is at baseline. Psychiatric: Mood and Affect: Mood normal. Behavior: Behavior normal. Assessment/Plan Assessment and Plan Problem List Items Addressed This Visit STEMI (ST elevation myocardial infarction) ([facility]) - Primary Relevant Orders Lipid panel Hemoglobin A1c Basic metabolic panel Follow Up Cardiology Other Visit Diagnoses Essential hypertension Hyperlipidemia, unspecified hyperlipidemia type Garret Iqbal is a 49 y.o. male with a past medical history notable for HTN, HLD, and CAD s/p PCI who presents for follow up visit. #CAD s/p PCI #Hyperlipidemia -Patient had STEMI presentation 02/2024 and underwent PCI to RCA. He had non- obstructive disease in LAD and distal RCA. -ECHO with EF 55%. -Patient initially on ASA and ticagrelor for DAPT, but was switched to prasugrel and ASA given dyspnea associated with ticagrelor. -Patient on IMDUR 30mg and carvedilol for antianginal therapy. -Patient LDL 181 at STEMI presentation, initially on statin therapy but had significant muscle aches and had to stop. Now on PCSK9 inhibitor. -Completed cardiac rehab. PLAN: -Continue DAPT with ASA and prasugrel for 1 year after STEMI (through 02/2025), then will plan for SAPT therapy. -Patient now on PCSK9 inhibitor. Repeat lipid panel today. -Continue imdur 30mg and carvedilol 6.25mg BID for antianginal therapies. #HTN -Patient on losartan 50mg daily and coreg 6.25mg BID as above. -BP at home has been at goal, but elevated in clinic. Patient to keep a log to better assess. PLAN: -Will continue to monitor. -Repeat BMP to reassess creatinine and electrolytes. #Obesity -Patient established with weight management clinic, now on naltrexone. Patient is working on diet changes. #Sleep Apnea -Patient with CRISTY, reports adherence with CPAP. #Constipation -Patient reports a long history of intermittent constipation but has noticed it has been worse since [place]. Reviewed medications and no worrisome contributors. Patient is on metamucil and magnesium to help with symptoms. -Discussed with patient and recommended he talk with his PCP about a colonoscopy for both screening(age >45) and symptoms. He will call his PCP to discuss options. RTC in [address] Milner and I spent 30 minutes performing the following components of the encounter (on the day of the encounter): reviewing History, examining the patient, and reviewing imaging and/or labs. Greater than 50% of the time spent on the encounter was face to face providing direct patient care, counseling for the patient/caregiver, and care coordination. Electronically Signed by: Erika Cifuentes MD - 12/31/2024 - 8:33 AM Cosigned by Rafita Milner MD at 01/03/2025 9:11 AM EDT Associated attestation - Rafita Milner MD - 01/03/2025 9:11 AM EDT I evaluated the patient with the resident/fellow. I discussed the case with the resident/fellow andagree with the findings and plan as documented. documented in this encounter Plan of Treatment Upcoming Encounters Date Type Department Care Team (Late st Contact Info) Description 03/11/2025 8:45 AM EDT Office Visit [facility] [place] [address] [facility], [address] [place] [address] Erika Cifuentes MD [address] [place] [address] Scheduled Referrals Name Type Priority Associated Diagnoses Order Schedule Follow Up Cardiology Outpatient Referral Routine ST elevation myocardial infarction involving right coronary artery (CMS/HCC) Expected: 04/02/2025, Expires: 07/03/2026 documented as of this encounter Procedures Procedure Name Priority Date/Time Associated Diagnosis Comments HEMOGLOBIN A1C Routine 12/31/2024 8:[address] elevation myocardial infarction involving right coronary artery (CMS/HCC) LIPID PROFILE, PLASMA Routine 12/31/2024 8:26 AM EDT BASIC METABOLIC PANEL, PLASMA Routine 12/31/2024 8:[address] elevation myocardial infarction involving right coronary artery (CMS/HCC) documented in this encounter Results * (ABNORMAL) Lipid panel (12/31/2024 8:26 AM EDT) Cholesterol, Plasma 179 <200 mg/dL 12/31/2024 12:04 PM EDT [facility] Comment: Cholesterol Reference Range (age >17 years): Desirable <200 mg/dL Borderline 200 to 239 mg/dL Undesirable >239 mg/dL HDL 36(L) >=40 mg/dL 12/31/2024 12:04 PM EDT [facility] Comment: HDL Cholesterol Reference Ranges (age >17 years): Female, acceptable > or = 50 mg/dL Male, acceptable > or = 40 mg/dL Triglycerides, Plasma 176(H) <150 mg/dL 12/31/2024 12:04 PM EDT [facility] Comment: Triglyceride Reference Range (age >17 years): Desirable: <150 mg/dL Borderline high: 150 to 199 mg/dL High: 200 to 499 mg/dL Very high: >499 mg/dL Increased risk of pancreatitis: >1000 mg/dL Cholesterol/HDL Ratio 5 12/31/2024 12:04 PM EDT [facility] LDL, Calculated 112(H) <100 mg/dL 12:04 PM EDT [facility] Comment: LDL Cholesterol Reference Range (age >17 years): Optimal: <100 mg/dL Near or above optimal: 100 - 129 mg/dL Borderline high: 130 - 159 mg/dL High: 160 - 189 mg/dL Very high: >189 mg/dL LDL Cholesterol Reference Range (age <18 years): Desirable: <110 mg/dL Borderline: 110 - 129 mg/dL Undesirable: >130 mg/dL LDL Cholesterol is calculated using the Byrne/NIH equation. Fasting greater than or equal to 12 hours? Yes 12/31/2024 12:04 PM EDT [facility] Blood Venous blood specimen / Unknown Venipuncture / Unknown 12/31/2024 8:26 AM EDT 12/31/2024 8:26 AM EDT us Rafita Milner MD LAB BLOOD ORDERABLES Final Res ult [facility] [address] [place] [address] * (ABNORMAL) Basic metabolic panel (12/31/2024 8:26 AM EDT) [facility] Glucose, Plasma 93 74 - 99 mg/dL 12/31/2024 12:04 PM EDT [facility] BUN, Plasma 14 7 - 21 mg/dL 12/31/2024 12:04 PM EDT [facility] Creatinine, Plasma 1.29(H) 0.70 - 1.20 mg/dL 12/31/2024 12:04 PM EDT [facility] BUN/Creatinine Ratio 11 12/31/2024 12:04 PM EDT [facility] Sodium, Plasma 139 136 - 145 mmol/L 12/31/2024 12:04 PM EDT [facility] Potassium, Plasma 4.7 3.6 - 4.9 mmol/L 12/31/2024 12:04 PM EDT [facility] Chloride, Plasma 105 97 - 107 mmol/L 12/31/2024 12:04 PM EDT [facility] CO2, Plasma 25 22 - 29 mmol/L 12/31/2024 12:04 PM EDT [facility] Anion Gap 9 6 - 16 mmol/L 12/31/2024 12:04 PM EDT [facility] Total Calcium, Plasma 9.1 8.9 - 10.2 mg/dL 12/31/2024 12:04 PM EDT [facility] eGFRcr 68.0 mL/min/1.7 3m*2 12/31/2024 12:04 PM EDT [facility] Comment:Reported eGFRcr in m L/min/1.73m2 is based the CKD-EPI 2020 equation that does not use a race coefficient. Blood Venous blood specimen / Unknown Venipuncture / Unknown 12/31/2024 8:26 AM EDT 12/31/2024 8:26 AM EDT us Rafita Milner MD LAB BLOOD ORDERABLES Final Res ult Performing Organization Address City/[facility]/ZIP Co de Phone Number [facility] [address] [place] [address] * Hemoglobin A1c (12/31/2024 8:26 AM EDT) Hemoglobin A1c 5.2 <5.7 % 12/31/2024 2:20 PM EDT [facility] Blood Venous blood specimen / Unknown Venipuncture / Unknown 12/31/2024 8:26 AM EDT 12/31/2024 8:26 AM EDT Narrative [facility] - 12/31/2024 2:20 PM EDT HA1C Interpretive Data: Diagnosis of Diabetes: Diabetic > or = 6.5% Pre-diabetic 5.7 to 6.4% Non-diabetic < or = 5.6% Glycemic Targets for Type I and Type II Diabetics: Non- Adults <7.0% Adults <6.0% Children and Adolescents <7.5% Source: [place] [employer]. Standards of medical care in diabetes,2017. Diabetes Care.2017:40 (suppl 1):S1-S135. Rafita Milner MD LAB BLOOD ORDERABLES Final Res ult [facility] [address] [place] [address] documented in this encounter Visit Diagnoses Diagnosis ST elevation myocardial infarction involving right coronary artery (CMS/HCC)- Primary Essential hypertension Unspecified essential hypertension Hyperlipidemia, unspecified hyperlipidemia type documented in this encounter Additional Health Concerns Infection Onset Date Last Indicated Resolved Time Influenza 12/26/2024 12/26/2024 01/23/2025 9:53 PM EDT Assessment Noted Time PHQ-9 Depression Total Score: 8 01/01/20 8:48 AM EDT A fall risk assessment has been complete d for the patient 12/31/2024 8:48 AM EDT A Body Mass Index follow-up plan has been documented for the patient 12/31/2024 8:34 AM EDT documented as of this encounter Care Teams Spark Plug Tester Relationship Specialty Start Date End Date Serge Hansen MD [address] [place] [address] [place] [address] PCP - General Internal Medicine 01/28/21 Issac Greenwood, JAVA PROGRAMMING PROFESSOR, DNP [address] [place] [phone] Nurse Practitioner Psychiatry 02/27/24 Brianna Patton MD [address] [address] Consulting Physician Internal Medicine 10/31/24 documented as of this encounter
--- OUTSIDE RECORDS SUMMARY | 2025-02-16 09:23 | XMS_ITS | Encounter Summary ---
Author Organization [facility] Address [address] [place] [address] Care Team Providers Care Medical Technical Writer Name Role Phone Serge Hansen MD Primary Care Provider + [phone] Issac Greenwood APRN, DNP Unavailable [phone] Brianna Patton MD Unavailable [phone] Reason for Visit * Reason Comments Med Refill Encounter Details Date Type Department Care Team (Late st Contact Info) Description 02/10/2025 Refill [facility] Internal Medicine [address], [address] [place] [address] Brianna Patton MD [address] [place] [address] Social History Tobacco Use Types [...] often do you attend chur ch or shinto services? More than 4 times per year 01/31/2024 Do you belong to any clubs o r organizations such as caodaism groups, unions, fraternal or athletic groups, or [...] place to sleep or slept in a usp (including now)? No 01/29/2024 PHQ-9 Answer Date [...] any time in the past 12 m [facility], were you homeless or living in a usp (including now)? No 10/01/2024 AUDIT-C Answer Date [...] the past 12 months has th e [employer], gas, oil, or water [employer] threatened to shut off services in your [...] Description 03/11/2025 8:45 AM EDT Office Visit [facility] [place] [address] [facility], [address] [place] [address] Erika Cifuentes MD [address] [place] [address] documented as of this encounter Visit Diagnoses Not on filedocumented in this encounter Additional Health Concerns Assessment Noted Time PHQ-9 Depression Total Score: 8 01/01/20 25 8:48 AM EDT A fall risk assessment has been complete d for the patient 12/31/2024 8:48 AM EDT A Body Mass Index follow-up plan has been documented for the patient 12/31/2024 8:34 AM EDT documented as of this encounter Care Teams Medical Technical Writer Relationship Specialty Start Date End Date Serge Hansen MD [address] [place] [address] PCP - General Internal Medicine 01/28/21 Issac Greenwood APRN, STEFFANY [address] [place] [phone] Nurse Practitioner Psychiatry 02/27/24 Brianna Patton MD [address] [address] Consulting Physician Internal Medicine 10/31/24 documented as of this encounter
--- OUTSIDE RECORDS SUMMARY | 2025-02-16 09:23 | XMS_ITS | Encounter Summary ---
Author Organization [facility] Address [address] [place] [address] Care Team Providers Care Director Of Retention Name Role Phone Serge Hansen MD Primary Care Provider + [phone] Issac Greenwood APRN, DNP Unavailable [phone] Brianna Patton MD Unavailable [phone] Reason for Visit * Reason Onset Date Comments Randall CHUA 01/09/2025 Encounter Details Date Type Department Care Team (Late st Contact Info) Description 01/09/2025 Telephone [facility] [address] [place] [address] Manny Barros, PharmD [place] [address] Randall CHUA Social History Tobacco Use Types Packs/Day Years [...] often do you attend chur ch or hindu services? More than 4 times per year 01/31/2024 Do you belong to any clubs o r organizations such as mosque groups, unions, fraternal or athletic groups, or [...] place to sleep or slept in a fci (including now)? No 01/29/2024 PHQ-9 Answer Date [...] any time in the past 12 m [facility], were you homeless or living in a fci (including now)? No 10/01/2024 AUDIT-C Answer Date [...] Recorded In the past 12 months has e [employer], gas, oil, or water [employer] threatened to shut off services in your home? No 10/01/2024 Sex and Gender Information Value Date Recorded Sex Assigned at Not on file Legal Sex Male 6:04 PM EDT Gender Identity Not on file Sexual Orientation Not on file documented as of this encounter Plan of Treatment Upcoming Encounters Date Type Department Care Team ([facility] st Contact Info) Description 03/11/2025 8:45 AM EDT Office Visit [facility] [place] [address] [facility], [address] [place] [address] Erika Cifuentes MD [address] [place] [address] documented as of this encounter Visit Diagnoses Not on filedocumented in this encounter Additional Health Concerns Infection [...] documented as of this encounter Care Teams Director Of Retention Relationship Specialty Start Date End Date Serge Hansen MD [address] [place] [address] PCP - General Internal Medicine 01/28/21 Issac Greenwood, BANKMAN, [facility] [address] [place] [phone] Nurse Practitioner Psychiatry 02/27/24 Brianna Patton MD [address] [phone] Consulting Physician Internal Medicine 10/31/24 documented as of this encounter
--- OUTSIDE RECORDS SUMMARY | 2025-02-16 09:23 | XMS_ITS | Clinical Summary ---
Author Organization [facility] Address [address] [place] [address] Care Team Providers Care Territory Sales Representative Name Role Phone Serge Hansen MD Primary Care Provider + [phone] Issac Greenwood APRN, DNP Unavailable [phone] Brianna Patton MD Unavailable [phone] Allergies Active Allergy Reactions Criticality Noted [...] 90 tablet 3 05/21/20 24 025 Active prasugrel (Effient) 10 MG tablet Take 1 tablet (10 mg) by mouth 1 (one) time each day. 90 tablet 3 05/21/20 24 Active nitroglycerin (Nitrostat) 0.[address] 1 tablet (0.4 mg) under the tongue every 5 (five) minutes if needed for chest pain. 3 tablet 3 05/21/20 24 Active buPROPion XL (Wellbutrin XL) 150 MG 24 hr tablet 08/14/19 25 Active psyllium (Metamucil) 58.6 % packet Take 1 packet by mouth daily. Active Tirzepatide-Nicolas ght Management (Zepbound) 2.5 MG/0.5ML solution auto-injectorIn dications:Morbi d obesity with body mass index (BMI) of 40.0 or higher (CMS/HCC),CIRSTY on CPAP Inject 2.5 mg under the skin 1 time per week. 0.5 mL 1 11/08/19 25 Active Additional Information Patient not taking.Reported on 12/31/2024 Evolocumab (Repatha SureClick) 140 MG/ML solution auto-injector autoinjector Inject 1 mL under the skin every 14 days. 2 mL 3 12/17/19 25 Active Bempedoic Acid-Ezetimibe 180-10 MG tabletIndicatio ns:ST elevation myocardial infarction involving right coronary artery (CMS/HCC) Take 1 tablet by mouth daily. 30 tablet 5 01/10/20 25 Active naltrexone (ReVia) 50 MG tablet TAKE 1/2 TABLET BY MOUTH ONCE A DAY 30 tablet 02/11/20 25 Active naltrexone (ReVia) 50 MG tablet TAKE 1/2 TABLET BY MOUTH DAILY 30 tablet 12/17/19 25 025 Discontinued Active Problems Problem Noted Date Diagnosed Date Coronary artery disease invo lving [place] coronary artery of [place] heart without angina pectoris 12/31/2024 Bronchitis 12/26/2024 Gout 12/26/2024 Influenza A 12/26/2024 Left foot pain 12/26/2024 Pain, dental 12/26/2024 Sinusitis 12/26/2024 UTI (urinary tract infection) 12/26/2024 Lower back pain 02/19/2024 Pain of right hip joint 02/19/2024 Class III obesity with body mass index (BMI) of 40.0 or higher 02/12/2024 NSTEMI (non-ST elevated myocardial infarction) 0 02/02/2024 STEMI (ST elevation myocardial infarction) 01/27 Encounters Date Type Department Care Team Description 02/10/2025 [facility] Internal Medicine [address], [address] [place] [address] Brianna Patton MD 01/09/2025 Telephone [facility] [address] [place] [address] Manny Barros, PharmD Nexilzet PA 01/09/2025 Results Follow-Up [facility] [place] [address] [place] [address] Erika Cifuentes MD 12/31/2024 8:00 AM EDT Office Visit [facility] [place] [place] [address], [address] [place] [address] elevation myocardial infarction involving right coronary artery (CMS/HCC) (Primary Dx); Essential hypertension; Hyperlipidemia, unspecified hyperlipidemia type 12/31/2024 Travel 12/16/2024 [facility] [place] [address], [address] [place] [address] Erika Cifuentes MD 12/16/2024 [facility] [place] [address], [address] [place] [address] Erika Cifuentes MD 12/16/2024 [facility] Internal [facility] [address], [address] [place] [address] Ev Sanchez MD from Last 3 Months Immunizations Immunization Administration [...] 01/31/2024 How often do you attend chur or presybeterian services? More than 4 times per year 01/31/2024 Do you belong to any clubs o r organizations such as catholic groups, unions, fraternal or athletic groups, or [...] place to sleep or slept in a halfway (including now)? No 01/29/2024 PHQ-9 Answer Date [...] any time in the past 12 m [facility], were you homeless or living in a halfway (including now)? No 10/01/2024 AUDIT-C Answer Date [...] Recorded In the past 12 months has [employer], gas, oil, or water [employer] threatened to shut off services in your [...] Mass Index 47.72 12/31/2024 7:43 AM EDT Plan of Treatment Upcoming Encounters Date Type Department Care Team (Late st Contact Info) Description 03/11/2025 8:45 AM EDT Office Visit [facility] [place] [address] [facility], [address] [place] [address] Erika Cifuentes MD [address] [place] [id number] Health Maintenance Due Date Last Done Comments [facility]-HIV Screening 1975 [facility]-Hepatitis C Screening 1975 [facility]-Infant/Child/Adol SDOH Screenings 1975 [facility]-DTaP,Tdap,and Td Vaccines (1 - Tdap) 1994 [facility]-Pneumococcal Vaccine: Pediatrics (0 to 5 Years) and At-Risk Patients (6 to 49 Years) (1 of 2 - PCV) 1994 CT Colonography 2020 Colonoscopy 2020 FIT-DNA 2020 FIT 2020 FOBT 2020 Sigmoidoscopy 2020 [facility]-Colorectal Cancer Screening 2020 [id number] Vaccine ( season) 2025 [facility]-Influenza Vaccine (#1) 2025 [facility]- SDOH Screenings 04/02/2025 [facility]-Adult SDOH Screenings 04/02/2025 10/01/2024 [facility]-Zoster Vaccines (1 of 2) 2025 [facility]-Depression Screening 12/31/2025 12/31/2024, 12/04 [facility]-Hepatitis B Vaccines Completed 001, 08/03/2000, 06/21/2000 [facility]-Obesity Intervention Completed 025, 10/01/2024, 05/21/2024, Additional history exists HPV Vaccines Aged Out [...] this topic Medical Devices Implanted Type Area Community Mental Health Social Worker Device Identifier Shelf Expiration Date Model / Serial / Lot Stent Roland Pro Rx 4.5mm X 30mm - [id number] Implanted:Qty: 1 on 01/28/2024 by Munira Manager [employer] [id number] 10/08/2026 [id number] UX / / [id number]. Procedures Procedure Name Priority Date/Time Associated Diagnosis Comments BASIC METABOLIC PANEL, PLASMA Routine 12/31/2024 8:[address] elevation myocardial infarction involving right coronary artery (CMS/HCC) HEMOGLOBIN A1C Routine 12/31/2024 8:[address] elevation myocardial infarction involving right coronary artery (CMS/HCC) LIPID PROFILE, PLASMA Routine 12/31/2024 8:26 AM EDT from Last 3 Months Results * Hemoglobin A1c (12/31/2024 8:26 AM EDT) Hemoglobin A1c 5.2 <5.7 % 12/31/2024 2:20 PM EDT [facility] Blood Venous blood specimen / Unknown Venipuncture / Unknown 12/31/2024 8:26 AM EDT 12/31/2024 8:26 AM EDT Narrative [facility] - 12/31/2024 2:20 PM EDT HA1C Interpretive Data: Diagnosis of Diabetes: Diabetic > or = 6.5% Pre-diabetic 5.7 to 6.4% Non-diabetic < or = 5.6% Glycemic Targets for Type I and Type II Diabetics: Non- Adults <7.0% Adults <6.0% Children and Adolescents <7.5% Source: [place] [employer]. Standards of medical care in diabetes,2017. Diabetes Care.2017:40 (suppl 1):S1-S135. us Beck Milner MD LAB BLOOD ORDERABLES Final Res ult [facility] [address] [place] [address] * (ABNORMAL) Lipid panel (12/31/2024 8:26 AM [...] Cholesterol/HDL Ratio 5 12/31/2024 12:04 PM EDT [facility] LDL, Calculated 112(H) <100 mg/dL 12:04 PM EDT [facility] Comment: LDL Cholesterol Reference Range (age [...] 12 hours? Yes 12/31/2024 12:04 PM EDT [facility] Blood Venous blood specimen / Unknown Venipuncture / Unknown 12/31/2024 8:26 AM EDT 12/31/2024 8:26 AM EDT Beck Milner MD LAB BLOOD ORDERABLES Final Res ult [facility] [address] [place] [address] * (ABNORMAL) Basic metabolic panel (12/31/2024 8:26 AM EDT) Glucose, Plasma 93 74 - 99 mg/dL 12/31/2024 12:04 PM EDT [facility] BUN, Plasma 14 7 - 21 mg/dL 12/31/2024 12:04 PM EDT [facility] Creatinine, Plasma 1.29(H) 0.70 - 1.20 mg/dL 12/31/2024 12:04 PM EDT [facility] BUN/Creatinine Ratio 11 12/31/2024 12:04 PM EDT [facility] Sodium, Plasma 139 136 - 145 mmol/L 12/31/2024 12:04 PM EDT [facility] Potassium, Plasma 4.7 3.6 - 4.9 mmol/L 12/31/2024 12:04 PM EDT [facility] Chloride, Plasma 105 97 - 107 mmol/L 12/31/2024 12:04 PM EDT [facility] CO2, Plasma 25 22 - 29 mmol/L 12/31/2024 12:04 PM EDT [facility] Anion Gap 9 6 - 16 mmol/L 12/31/2024 12:04 PM EDT [facility] Total Calcium, Plasma 9.1 8.9 - 10.2 mg/dL 12/31/2024 12:04 PM EDT [facility] eGFRcr 68.0 mL/min/1.7 3m*2 12/31/2024 12:04 PM EDT [facility] Comment:Reported eGFRcr in m L/min/1.73m2 is based the CKD-EPI 2020 equation that does not use a race coefficient. Blood Venous blood specimen / Unknown Venipuncture / Unknown 12/31/2024 8:26 AM EDT 12/31/2024 8:26 AM EDT us Beck Milner MD LAB BLOOD ORDERABLES Final Res ult Performing Organization Address City/State/[facility] Co de Phone Number [facility] [address] [place] [address] from Last 3 Months Insurance [facility] Advance Directives * Full Code (Latest Code Status on File) Date Activated Date Inactivated Comments 02/02/2024 11:09 PM 02/04/2024 2:31 PM Question Answer Comments Patient has decision-making capacity? Yes * Full Code Date Activated Date Inactivated Comments 01/28/2024 11:22 PM 01/30/2024 4:55 PM Question Answer Comments Patient has decision-making capacity? Yes Care Teams Territory Sales Representative Relationship Specialty Start Date End Date Serge Hansen MD [address] [place] [address] PCP - General Internal Medicine 01/28/21 Issac Greenwood, POWER SYSTEM ENGINEER, DNP [address] [place] [address] Nurse Practitioner Psychiatry 02/27/24 Brianna Patton MD [address] [address] Consulting Physician Internal Medicine 10/31/24
--- OUTSIDE RECORDS SUMMARY | 2025-02-16 09:23 | XMS_ITS | Encounter Summary ---
Author Organization [facility] Address [address] [place] [address] Care Team Providers Care Amusement Machine Mechanic Name Role Phone Serge Hansen MD Primary Care Provider + [phone] Issac Greenwood APRN, STEFFANY Unavailable [phone] Brianna Patton MD Unavailable [phone] Encounter Details Date Type Department Care Team (Late st Contact Info) Description 01/09/2025 Results Follow-Up [facility] [place] [address] [facility] [place] [address] Erika Cifuentes MD [address] [place] [id number] Social History Tobacco Use Types Packs/Day Years [...] often do you attend chur ch or episcopalian services? More than 4 times per year 01/31/2024 Do you belong to any clubs o r organizations such as samaritan groups, unions, fraternal or athletic groups, or [...] place to sleep or slept in a long-term (including now)? No 01/29/2024 PHQ-9 Answer Date [...] any time in the past 12 m [facility], were you homeless or living in a long-term (including now)? No 10/01/2024 AUDIT-C Answer Date [...] In the past 12 months has e [employer], gas, oil, or water [employer] threatened to shut off services in your home? No 10/01/2024 Sex and Gender Information Value Date Recorded Sex Assigned at Not on file Legal Sex Male 6:04 PM EDT Gender Identity Not on file Sexual Orientation Not on file documented as of this encounter Plan of Treatment Upcoming Encounters Date Type Department Care Team ([facility] st Contact Info) Description 03/11/2025 8:45 AM EDT Office Visit [facility] [place] [address] [facility] [place] [address] Erika Cifuentes MD [address] [place] [address] documented as of this encounter Visit Diagnoses Diagnosis ST elevation myocardial infarction involving right coronary artery (CMS/HCC)- Primary documented in this encounter Additional Health Concerns [...] documented as of this encounter Care Teams Amusement Machine Mechanic Relationship Specialty Start Date End Date Serge Hansen MD [address] [place] [address] PCP - General Internal Medicine 01/28/21 Issac Greenwood, JEFF, [facility] [address] [place] [address] Nurse Practitioner Psychiatry 02/27/24 Brianna Patton MD [address] [place] [address] Consulting Physician Internal Medicine 10/31/24 documented as of this encounter
--- OUTSIDE RECORDS SUMMARY | 2025-02-16 09:23 | XMS_ITS | Encounter Summary ---
Author Organization [facility] Address [address] [place] [address] Care Team Providers Care Encoding Clerk Name Role Phone Serge Hansen MD Primary Care Provider + [phone] Issac Greenwood APRN, DNP Unavailable [phone] Brianna Patton MD Unavailable [phone] Encounter Details Date Type Department Care Team (Latest Contact Info) Description 12/31/2024 Travel Social History Tobacco Use Types Packs/Day Years [...] often do you attend chur ch or restorationist services? More than 4 times per year [...] place to sleep or slept in a residential (including now)? No 01/29/2024 PHQ-9 Answer Date [...] any time in the past 12 m [facility], were you homeless or living in a residential (including now)? No 10/01/2024 AUDIT-C Answer Date [...] Recorded In the past 12 months has [employer], [employer], oil, or water [employer] threatened to shut off services in your home? No 10/01/2024 Sex and Gender Information Value Date Recorded Sex Assigned at Not on file Legal Sex Male 6:04 PM EDT Gender Identity Not on file Sexual Orientation Not on file documented as of this encounter Functional Status * AUDIT-C Score Answer Date of Assessment Author 0 12/31/2024 7:45 AM Jeni Desai * Question Answer Date of Assessment Author Q1: How often do you have a drink containing alcohol? Never 12/31/2024 7:45 AM Jeni Desai Q2: How many drinks containing alcohol do you have on a typical day when you are drinking? Patient does not drink 12/31/2024 7:45 AM Jeni Desai Q3: How often do you have six or more drinks on one occasion? Never 12/31/2024 7:45 AM Jeni Desai * Over the past 2 weeks, how often have you been bothered by any of the following problems? Question Answer Date of Assessment Author Little interest or pleasure in doing things Several days 12/31/2024 8:48 AM Jeni Desai Feeling down, depressed, or hopeless Several days 12/31/2024 8:48 AM Jeni Desai Patient Health Questionnaire -2 Score 2 12/31/2024 8:48 AM Jeni Desai * Question Answer Date of Assessment Author [...] than usual. Several days 12/31/2024 8:48 AM ZAIDAT Jeni Do Thoughts that you would be b luz marina off or hurting yourself in some way Several days 12/31/2024 8:48 AM ZAIDAT Jeni Do Patient Health Questionnaire -9 Score 8 12/31/2024 8:48 AM ZAIDAT Jeni Do * If you checked off [...] Jeni Flowers documented as of this encounter Plan of Treatment Upcoming Encounters Date Type Department Care Team (Late st Contact Info) Description 03/11/2025 8:45 AM EDT Office Visit [facility] [place] [address] [facility], [address] [place] [address] Erika Cifuentes MD [address] [place] [address] documented as of this encounter Visit Diagnoses [...] documented as of this encounter Care Teams Encoding Clerk Relationship Specialty Start Date End Date Serge Hansen MD [address] [facility] [address] [facility] [address] [place] [address] PCP - General Internal Medicine 01/28/21 Issac Greenwood APRN, DNP [address] [place] [address] Nurse Practitioner Psychiatry 02/27/24 Brianna Patton MD [address] [place] [address] Consulting Physician Internal Medicine 10/31/24 documented as of this encounter
[2025-02-16 10:26] LABS: Alanine Aminotransferase 41 U/L (12-78); Albumin Level 3.7 g/dl (3.5-5.0); Albumin/Globulin Ratio 1.5 (1.1-1.8); Alkaline Phosphatase 56 U/L (38-126); Anion Gap 7.5 mEq/L (5-15); Aspartate Amino Transferase 41 U/L (17-59); Bilirubin,Total 0.5 mg/dl (0.2-1.3); Blood Urea Nitrogen 18 mg/dl (9-20); Calcium 8.9 mg/dl (8.4-10.2); Carbon Dioxide 29 mmol/L (22.0-30.0); Chloride 106 mmol/L (98-107); Creatine Kinase 107 U/L (55-170); Creatinine,Serum 1.10 mg/dl (0.66-1.25); Estimated Glomerular Filt Rate 71 ml/min (>60); GFR (African American) 86 ML/MIN (>60); Globulin 2.5 g/dL (1.3-3.2); Glucose 141 mg/dl (74-100); Magnesium 1.8 mg/dl (1.6-2.3); Potassium 4.5 mmoL/L (3.5-5.1); Sodium 138 mmol/L (136-145); Total Protein,Serum 6.2 g/dl (6.3-8.2)
[2025-02-16 10:45] LABS: 25-OH Vitamin D, Total 32.7 ng/mL (30-100)
[2025-02-16 10:55] LABS: Thyroid Stimulating Hormone 1.69 uIU/mL (0.465-4.68)
[2025-02-16 11:14] LABS: Vitamin B12 281 pg/mL (239-931)
[2025-02-16 19:11] LABS: Hemoglobin A1C 5.2 % (4.0-6.0)
== END 2025-02-16 23:59 | disposition home or self-care (01) ==
LOC: LAB 08:54
PROVIDERS: PCP Nurse Practitioner Family; Visit Provider Nurse Practitioner Family
DX: I25.10 Atherosclerotic heart disease of native coronary artery without angina pectoris (principal); M79.10 Myalgia, unspecified site; R53.81 Other malaise
CPT/HCPCS: 36415; 80053; 82085; 82306; 82550; 82607; 83036; 83735; 84443

== ENCOUNTER 2025-05-03 08:25 | Outpatient (CLI) | payer OTHER, SELFPAY ==
--- OUTSIDE RECORDS SUMMARY | 2025-03-11 07:45 | XMS_ITS | Encounter Summary ---
Author Organization [facility] Address [address] [place] [address] Care Team Providers Care Sales Support Manager Name Role Phone Serge Hansen MD Primary Care Provider + [phone] Issac Greenwood APRN, STEFFANY Unavailable [phone] Brianna Patton MD Unavailable [phone] Reason for Referral * Consultation (Routine) - Authorized Specialty Diagnoses / Procedures Referred By Contac t Referred To Contact Diagnoses ST elevation myocardial infarction involving right coronary artery Rafita Milner MD [address] [place] [address] Phone: tel: fax: Referral ID Status Reason Start Date Expiration Date V isits Requested Visits Authorized [id number] Authorized 03/11/2025 09/10/2026 1 1 * Consultation (Routine) - Authorized Specialty Diagnoses / Procedures Referred By Conttessie sweeney Referred To Contact Diagnoses ST elevation myocardial infarction involving right coronary artery Rafita Milner MD [address] [place] [address] Phone: tel: fax: Referral ID Status Reason Start Date Expiration Date V isits Requested Visits Authorized [id number] Authorized 03/11/2025 09/10/2026 1 1 Reason for Visit * Consultation (Routine) - Closed Specialty Diagnoses / Procedures Referred By Conttessie t Referred To Contact Diagnoses ST elevation myocardial infarction involving right coronary artery Rafita Milner MD [address] [place] [address] Phone: tel: fax: Referral ID Status Reason Start Date Expiration Date Visits Re quested Visits Authorized [id number] Closed 12/31/2024 07/02/2026 1 1 Encounter Details Date Type Department Care Team (Late st Contact Info) Description 03/11/2025 8:45 AM EDT Office Visit [facility] [place] [address] [facility], [address] [place] [address] Erika Cifuentes MD [address] [place] [address] elevation myocardial infarction involving right coronary artery (Primary Dx) Social History Tobacco Use Types Packs/Day Years [...] often do you attend chur ch or jew services? More than 4 times per year 01/31/2024 Do you belong to any clubs o r organizations such as shinto groups, unions, fraternal or athletic groups, or [...] place to sleep or slept in a snf (including now)? No 01/29/2024 PHQ-9 Answer Date [...] any time in the past 12 m [facility], were you homeless or living in a snf (including now)? No 10/01/2024 AUDIT-C Answer Date Recorded Q1: How often do you have a drink containing alc ohol? Monthly or less 03/11/2025 Q2: How many drinks containi ng alcohol do you have on a typical day when you are drinking? 1 or 2 03/11/2025 Q3: How often do you have si x or more drinks on one occasion? Less than monthly 03/11/2025 Utilities Answer Date Recorded In the past 12 months has [employer], gas, oil, or water [employer] threatened to shut off services in your home? No 10/01/2024 Sex and Gender Information Value Date Recorded Sex Assigned at Not on file Legal Sex Male 6:04 PM EDT Gender Identity Not on file Sexual Orientation Not on file documented as of this encounter Last Filed Vital Signs Vital Sign Reading Time Taken Comments Blood Pressure 124/85 03/11/2025 8:21 AM EDT Pulse 66 03/11/2025 8:21 AM EDT Temperature - - Respiratory Rate - - Oxygen Saturation 98% 03/11/2025 8:21 AM EDT Inhaled Oxygen Concentration - - Weight 155 kg (340 lb 13.3 oz) 03/11/2025 8:21 A M EDT Height 185.4 cm (6' 1 ) 03/11/2025 8:21 AM EDT Body Mass Index 44.97 03/11/2025 8:21 AM EDT documented in this encounter Functional Status * AUDIT-C Score Answer Date of Assessment Author 2 03/11/2025 8:23 AM EDT Escobar Holbrook * Question Answer Date of Assessment Author Q1: How often do you have a drink containing alcohol? Monthly or less 03/11/2025 8:23 AM ZAIDAT Jeremie Holbrook Q2: How many drinks containi ng alcohol do you have on a typical day when you are drinking? 1 or 2 03/11/2025 8:23 AM ZAIDAT Alecia Holbrook Q3: How often do you have si x or more drinks on one occasion? Less than monthly 03/11/2025 8:23 AM EDT Alecia Holbrook documented as of this encounter Miscellaneous Notes * Addendum Note - Rafita Milner MD - 03/11/2025 8:45 AM EDTAddended by: RAFITA MILNER on: 03/15/2025 04:47 PM Modules accepted: Level of Service * Progress Notes - Erika Cifuentes MD - 03/11/2025 8:45 AM EDT Images from the original note were not included. Cardiology Clinic Note Chief Complaint: CAD follow up History of Present Illness Garret Iqbal is a 49 y.o. male with a past medical history notable for HTN, HLD, and CAD s/p PCI who presents for follow up visit. Since last visit, patient had muscle aches with bempedoic acid-ezetimibe, which was stopped. He hasstarted tirzepatide through a compounding pharmacy and reports losing ~12lbs so far. Patient reports he is still having daytime fatigue but has noticed improvement the last few weeks with weight loss. The following portions of the chart were reviewed this encounter and updated as appropriate: PMH, medications. Review of Systems 14 point review of systems performed, pertinent positives documented in the HPI, and remaining reviewed systems are negative. Objective Visit Vitals BP 124/85 (BP Location: Left arm, Patient Position: Sitting, BP Cuff Size: Adult long) Pulse 66 Ht 1.854 m (6' 1 ) Wt 155 kg (340 lb 13.3 oz) SpO2 98% BMI 44.97 kg/m?? Smoking Status Never BSA 2.83 m?? Physical Exam Physical Exam Constitutional: General: [...] This Visit STEMI (ST elevation myocardial infarction) - Primary Relevant Orders Follow Up Cardiology Follow Up Cardiology Garret Iqbal is a 49 y.o. male [...] ASA given dyspnea associated with ticagrelor. -Patient LDL 181 at STEMI presentation, initially on statin therapy but had significant muscle aches and had to stop. Now on PCSK9 inhibitor. Also did not tolerate bempedoic acid-ezetimibe. -Completed cardiac rehab. PLAN: -Now he is >1 year out from ACS event, will de-escalate to single antiplatelet therapy with prasugrel. Of note, since patient is now >1 year from ACS event and symptoms are well controlled, patient could hold prasugrel for 5 days prior to colonoscopy and resume when safe from a bleeding standpoint. He is working on getting colonoscopy scheduled. -Patient now on PCSK9 inhibitor. Pharmacy to follow up with patient in 3 months for repeat lipids. -Continue carvedilol 6.25mg BID for antianginal therapies and for PVC burden noted during index event. -Discussed with patient and will stop IMDUR as he has been chest pain free, if symptoms develop we can plan to restart. Pharmacy to follow up with patient. #HTN -Patient on losartan 50mg daily and coreg 6.25mg BID as above. PLAN: -Will continue to monitor. #Obesity -Patient reports he is now on tirzepatide and has lost 12lbs so far. #Sleep Apnea -Patient with [facility], reports adherence with CPAP. RTC in [address] Milner and I spent 30 minutes performing the following components of the encounter (on the day of the encounter): reviewing History, examining the patient, and reviewing imaging and/or labs. Greater than 50% of the time spent on the encounter was face to face providing direct patient care, counseling for the patient/caregiver, and care coordination. Electronically Signed by: Erika Cifuentes MD - 03/11/2025 - 12:04 PM Cosigned by Rafita Milner MD at 03/15/2025 4:47 PM EDT Associated attestation - Rafita Milner MD - 03/15/2025 4:47 PM EDT I evaluated the patient with the resident/fellow. I discussed the case with the resident/fellow andagree with the findings and plan as documented. documented in this encounter Plan of Treatment Upcoming Encounters Date Type Department Care Team (Late st Contact Info) Description 10/07/2025 8:45 AM EDT Office Visit [facility] [place] [address] [facility], [address] [place] [address] Erika Cifuentes MD [address] [place], [place] [id number] Scheduled Referrals Name Type Priority Associated Diagnoses Order Schedule Follow Up Cardiology Outpatient Referral Routine ST elevation myocardial infarction involving right coronary artery 1 Occurrences starting 03/11/2025 until 09/09/2026 Follow Up Cardiology Outpatient Referral Routine ST elevation myocardial infarction involving right coronary artery Expected: 09/09/2025, Expires: 09/09/2026 documented as of this encounter Visit Diagnoses Diagnosis ST elevation myocardial infarction involving right coronary artery- Primary documented in this encounter Additional Health Concerns Assessment Noted Time PHQ-9 Depression Total Score: 8 12/31/ 25 8:48 AM EDT A fall risk assessment has been complete d for the patient 03/11/2025 8:28 AM EDT A Body Mass Index follow-up plan has been documented for the patient 03/11/2025 12:04 PM EDT documented as of this encounter Care Teams Sales Support Manager Relationship Specialty Start Date End Date Serge Hansen MD [address] [place] [address] [place] [address] PCP - General Internal Medicine 01/28/21 Issac Greenwood APRN, STEFFANY [address] [place] [address] Nurse Practitioner Psychiatry 02/27/24 Brianna Patton MD [address] [address] Consulting Physician Internal Medicine 10/31/24 documented as of this encounter
--- OUTSIDE RECORDS SUMMARY | 2025-05-05 08:30 | XMS_ITS | Encounter Summary ---
Author Organization [facility] Address [address] [place] [id number] Care Team Providers Care Ink Printer Name Role Phone Serge Hansen MD Primary Care Provider + [phone] Issac Greenwood APRN, DNP Unavailable [phone] Brianna Patton MD Unavailable [phone] Reason for Visit * Reason Onset Date Comments Med Refill 04/29/2025 The pended medic ations have been requested for refill. Please send to Specialty Pharmacy. Encounter Details Date Type Department Care Team (Late st Contact Info) Description 04/29/2025 Refill [facility] [place] [address] [facility], [address] [place] [address] Erika Cifuentes MD [address] [place] [id number] Social History Tobacco Use Types Packs/Day Years [...] often do you attend chur ch or congregation services? More than 4 times per year 01/31/2024 Do you belong to any clubs o r organizations such as congregational groups, unions, fraternal or athletic groups, or [...] any time in the past 12 m [facility], were you homeless or living in a correction (including now)? No 10/01/2024 AUDIT-C Answer Date [...] Recorded In the past 12 months has [employer], gas, oil, or water company threatened to shut off services in your home? No 10/01/2024 Sex and Gender Information Value Date Recorded Sex Assigned at Not on file Legal Sex Male 6:04 PM EDT Gender Identity Not on file Sexual Orientation Not on file documented as of this encounter Plan of Treatment Upcoming Encounters Date Type Department Care Team ([facility] st Contact Info) Description 10/07/2025 8:45 AM EDT Office Visit [facility] [place] [address] [facility], [address] [place] [address] Erika Cifuentes MD [address] [place] [address] documented as of this encounter [...] documented as of this encounter Care Teams Ink Printer Relationship Specialty Start Date End Date Serge Hansen MD [address] [place] [address] PCP - General Internal Medicine 01/28/21 Issac Greenwood, JEFF, [facility] [address] [place] [address] Nurse Practitioner Psychiatry 02/27/24 Brianna Patton MD [address] [facility] [address] [place] [address] Consulting Physician Internal Medicine 10/31/24 documented as of this encounter
--- OUTSIDE RECORDS SUMMARY | 2025-05-05 08:30 | XMS_ITS | Encounter Summary ---
Author Organization [facility] Address [address] [place] [address] Care Team Providers Care Catalyst Operator Name Role Phone Serge Hansen MD Primary Care Provider + [phone] Issac Greenwood APRN, DNP Unavailable [phone] Brianna Patton MD Unavailable [phone] Encounter Details Date Type Department Care Team (Latest Contact Info) Description 03/11/2025 Travel Social History Tobacco Use Types Packs/Day [...] any clubs o r organizations such as methodist groups, unions, fraternal or athletic groups, or [...] place to sleep or slept in a longterm (including now)? No 01/29/2024 PHQ-9 Answer Date [...] any time in the past 12 m [facility], were you homeless or living in a longterm (including now)? No 10/01/2024 AUDIT-C Answer Date [...] In the past 12 months has th [employer], gas, oil, or water company threatened to shut off services in your home? No 10/01/2024 Sex and Gender Information Value Date Recorded Sex Assigned at Not on file Legal Sex Male 6:04 PM EDT Gender Identity Not on file Sexual Orientation Not on file documented as of this encounter Functional Status * AUDIT-C Score Answer Date of Assessment Author 2 03/11/2025 8:23 AM Escobar Camilo * Question Answer Date of Assessment Author Q1: How often do you have a drink containing alcohol? Monthly or less 03/11/2025 8:23 AM Jeremie Camilo Q2: How many drinks containi ng alcohol do you have on a typical day when you are drinking? 1 or 2 03/11/2025 8:23 AM Alecia Camilo Q3: How often do you have si x or more drinks on one occasion? Less than monthly 03/11/2025 8:23 AM Alecia Camilo documented as of this encounter Plan of Treatment Upcoming Encounters Date Type Department Care Team (Late st Contact Info) Description 10/07/2025 8:45 AM EDT Office Visit [facility] [place] [address] [facility], [address] [place] [address] Erika Cifuentes MD [address] [place] [address] documented as of this encounter [...] documented as of this encounter Care Teams Catalyst Operator Relationship Specialty Start Date End Date Serge Hansen MD [address] [place] [address] PCP - General Internal Medicine 01/28/21 Issac Greenwood APRN, STEFFANY [address] [place] [address] Nurse Practitioner Psychiatry 02/27/24 Brianna Patton MD [address] [address] Consulting Physician Internal Medicine 10/31/24 documented as of this encounter
--- OUTSIDE RECORDS SUMMARY | 2025-05-05 08:30 | XMS_ITS | Clinical Summary ---
Author Organization [facility] Address [address] [place] [address] Care Team Providers Care Supervisor Compounding And Finishing Name Role Phone Serge Hansen MD Primary Care Provider + [phone] Issac Greenwood APRN, DNP Unavailable [phone] Brianna Patton MD Unavailable [phone] Allergies Active Allergy Reactions Criticality Noted Date Comments Bempedoic Acid-Ezetimibe Other - please document in the comment field Low 03/11/2025 myalgias Statins Other - please document in the comment field Low 03/11/2025 Myalgias/weakness Ticagrelor Shortness of breath High 02/27/2024 Medications Magnesium Citrate 200 MG tablet Take 200 mg by mouth 1 (one) time each day. Active prasugrel (Effient) 10 MG tablet Take 1 tablet (10 mg) by mouth 1 (one) time each day. 90 tablet 3 4 Active nitroglycerin (Nitrostat) 0.[address] 1 tablet (0.4 mg) under the tongue every 5 (five) minutes if needed for chest pain. 3 tablet 3 4 Active buPROPion XL (Wellbutrin XL) 150 MG 24 hr tablet 5 Active psyllium (Metamucil) 58.6 % packet Take 1 packet by mouth daily. Active Psyllium 48.57 % powder daily. 5 Active TIRZEPATIDE SC Inject under the skin 1 time per week. Active buPROPion XL (Wellbutrin XL) 300 MG 24 hr tablet Take 1 tablet by mouth every morning. 90 tablet 3 Active losartan (Cozaar) 50 MG tablet Take 1 tablet by mouth daily. 90 tablet 3 5 03/12/20 Active carvedilol (Coreg) 6.25 MG tablet Take 1 tablet by mouth 2 times a day. 180 tablet 3 5 03/17/20 Active Evolocumab (Repatha SureClick) 140 MG/ML solution auto-injector autoinjector Inject 1 mL under the skin every 14 days. 2 mL 3 Active Evolocumab (Repatha SureClick) 140 MG/ML solution auto-injector autoinjector Inject 1 mL under the skin every 14 days. 2 mL 3 5 04/29/20 Discontinu ed(Reorder ) Active Problems Problem Noted Date Diagnosed Date Fracture of proximal phalanx of lesser toe of ri ght foot 03/04/2025 Coronary artery disease invo lving nondalton coronary artery of nondalton heart without angina pectoris 12/31/2024 Gout 12/26/2024 Left foot pain 12/26/2024 Pain, dental 12/26/2024 Lower back pain 02/19/2024 Pain of right hip joint 02/19/2024 Class III obesity with body mass index (BMI) of 40.0 or higher 02/12/2024 STEMI (ST elevation myocardial infarction) 01/27 Resolved Problems Problem Noted Date Diagnosed Date Resolved Date Bronchitis 12/26/2024 03/29/2025 Influenza A 12/26/2024 03/29/2025 Sinusitis 12/26/2024 03/29/2025 UTI (urinary tract infection) 12/26/2024 03/29/2025 NSTEMI (non-ST elevated myoc ardial infarction) 02/02/2024 02/22/2025 Encounters Date Type Department Care Team Description 04/29/2025 Refill [facility] [place] [address] [facility], [address] [place] [address] Erika Cifuentes MD 03/17/2025 Refill [facility] [place] [address] [facility], [address] [place] [address] Erika Cifuentes MD 03/11/2025 8:45 AM EDT Office Visit [facility] [place] [address] [facility], [address] [place] [address] elevation myocardial infarction involving right coronary artery (Primary Dx) 03/11/2025 Travel 03/10/2025 Travel 02/10/2025 [facility] [address], [address] [place] [address] Brianna Patton MD from Last 3 Months Immunizations Immunization [...] Name Status Comments Father Blake Maternal Grandfather Bill Maternal Grandmother Zenia Mother Linda Mother's Brother [...] often do you attend chur ch or hinduism services? More than 4 times per year [...] place to sleep or slept in a alf (including now)? No 01/29/2024 PHQ-9 Answer Date [...] time in the past 12 m [facility], were you homeless or living in a alf (including now)? No 10/01/2024 AUDIT-C Answer Date [...] the past 12 months has th e [employer], gas, oil, or water [employer] threatened to shut off services in your home? No 10/01/2024 Sex and Gender Information Value Date Recorded Sex Assigned at Not on file Legal Sex Male 6:04 PM EDT Gender Identity Not on file Sexual Orientation Not on file Last Filed Vital Signs Vital Sign Reading Time Taken Comments Blood Pressure 124/85 03/11/2025 8:21 AM EDT Pulse 66 03/11/2025 8:21 AM EDT Temperature 36.6 C (97.9 F) 12/31/2024 7:43 AM EDT Respiratory Rate 17 12/31/2024 7:43 AM EDT Oxygen Saturation 98% 03/11/2025 8:21 AM EDT Inhaled Oxygen Concentration - - Weight 155 kg (340 lb 13.3 oz) 03/11/2025 8:21 A M EDT Height 185.4 cm (6' 1 ) 03/11/2025 8:21 AM EDT Body Mass Index 44.97 03/11/2025 8:21 AM EDT Plan of Treatment Upcoming Encounters Date Type Department Care Team (Late st Contact Info) Description 10/07/2025 8:45 AM EDT Office Visit [facility] [place] [address] [facility], [address] [place] [address] Erika Cifuentes MD [address] [place] [address] [place] [address] Health Maintenance Due Date Last Done Comments [facility]-HIV Screening 1975 [facility]-Hepatitis C Screening 1975 [facility]-Infant/Child/Adol SDOH Screenings 1975 [facility]-DTaP,Tdap,and Td Vaccines (1 - Tdap) 1994 [facility]-Pneumococcal Vaccine: Pediatrics (0 to 5 Years) and At-Risk Patients (6 to 49 Years) (1 of 2 - PCV) 1994 CT Colonography 2020 Colonoscopy 2020 FIT-DNA 2020 FIT 2020 FOBT 2020 Sigmoidoscopy 2020 [facility]-Colorectal Cancer Screening 2020 [id number]-09 Vaccine (1 - season) 2025 [facility]-Influenza Vaccine (#1) 2025 [facility]- SDOH Screenings 04/02/2025 [facility]-Adult SDOH Screenings 04/02/2025 10/01/2024 [facility]-Zoster Vaccines (1 of 2) 2025 [facility]-Depression Screening 12/31/2025 12/31/2024, 12/04 [facility]-Hepatitis B Vaccines Completed 001, 08/03/2000, 06/21/2000 [facility]-Obesity Intervention Completed 025, 12/31/2024, 10/01/2024, Additional history exists HPV Vaccines Aged Out [...] this topic Medical Devices Implanted Type Area Coordinator Of Placement Device Identifier Shelf Expiration Date Model / Serial / Lot Stent Kimball Pro Rx 4.5mm X 30mm - [id number] Implanted:Qty: 1 on 01/28/2024 by Deangelo LombardoMilitary Aircraft DesignerMD at [facility] [employer] [id number] 10/08/2026 [id number] UX / / [id number]. Insurance [facility] Advance Directives * Full Code (Latest Code Status on File) Date Activated Date Inactivated Comments 02/02/2024 11:09 PM 02/04/2024 2:31 PM Question Answer Comments Patient has decision-making capacity? Yes * Full Code Date Activated Date Inactivated Comments 01/28/2024 11:22 PM 01/30/2024 4:55 PM Question Answer Comments Patient has decision-making capacity? Yes Care Teams Supervisor Compounding And Finishing Relationship Specialty Start Date End Date Serge Hansen MD [address] [place] [address] [place] [address] PCP - General Internal Medicine 01/28/21 Issac Greenwood, MONOGRAM MACHINE OPERATOR, DNP [address] [place] [address] Nurse Practitioner Psychiatry 02/27/24 Brianna Patton MD [address] [address] Consulting Physician Internal Medicine 10/31/24
--- OUTSIDE RECORDS SUMMARY | 2025-05-05 08:30 | XMS_ITS | Encounter Summary ---
Author Organization [facility] Address [address] [place] [address] Care Team Providers Care Authorizer Name Role Phone Serge Hansen MD Primary Care Provider + [phone] Issac Greenwood APRN, STEFFANY Unavailable [phone] Brianna Patton MD Unavailable [phone] Encounter Details Date Type Department Care Team (Late st Contact Info) Description 01/09/2025 Results Follow-Up [facility] [place] [address] [facility] [place] [address] Erika Cifuentes MD [address] [place] [id number] Social History Tobacco Use Types Packs/Day Years [...] often do you attend chur ch or restorationism services? More than 4 times per year 01/31/2024 Do you belong to any clubs o r organizations such as voodoo groups, unions, fraternal or athletic groups, or [...] place to sleep or slept in a half-way (including now)? No 01/29/2024 PHQ-9 Answer Date [...] any time in the past 12 m [facility], were you homeless or living in a half-way (including now)? No 10/01/2024 AUDIT-C Answer Date [...] In the past 12 months has th [employer], gas, oil, or water [employer] threatened to shut off services in your [...] Description 10/07/2025 8:45 AM EDT Office Visit [facility] [place] [address] [facility], [address] [place] [address] Erika Cifuentes MD [address] [place] [address] documented as of this encounter [...] documented as of this encounter Care Teams Authorizer Relationship Specialty Start Date End Date Serge Hansen MD [address] [place] [address] PCP - General Internal Medicine 01/28/21 Issac Greenwood, JEFF, DNP [address] [place] [address] Nurse Practitioner Psychiatry 02/27/24 Brianna Patton MD [address] [place] [address] Consulting Physician Internal Medicine 10/31/24 documented as of this encounter
--- OUTSIDE RECORDS SUMMARY | 2025-05-05 08:30 | XMS_ITS | Encounter Summary ---
Author Organization [facility] Address [address] [place] [address] Care Team Providers Care Bar Gauger And Lubricator Tender Name Role Phone Serge Hansen MD Primary Care Provider + [phone] Issac Greenwood APRN, DNP Unavailable [phone] Brianna Patton MD Unavailable [phone] Reason for Visit * Reason Onset Date Comments Med Refill 03/17/2025 Encounter Details Date Type Department Care Team (Late st Contact Info) Description 03/17/2025 Refill [facility] [place] [address] [facility], [address] [place] [address] Erika Cifuentes MD [address] [place] [address] Social History Tobacco Use Types Packs/Day Years [...] often do you attend chur ch or rastafari services? More than 4 times per year 01/31/2024 Do you belong to any clubs o r organizations such as jainism groups, unions, fraternal or athletic groups, or [...] place to sleep or slept in a mcfp (including now)? No 01/29/2024 PHQ-9 Answer Date [...] any time in the past 12 m [facility], were you homeless or living in a mcfp (including now)? No 10/01/2024 AUDIT-C Answer Date [...] Recorded In the past 12 months has [employer], gas, oil, or water [employer] threatened to shut off services in your [...] Description 10/07/2025 8:45 AM EDT Office Visit [facility] [place] [place] [address] [facility], [address] [place] [address] Erika Cifuentes MD [address] [place] [address] documented as of this encounter [...] documented as of this encounter Care Teams Bar Gauger And Lubricator Tender Relationship Specialty Start Date End Date Serge Hansen MD [address] [place] [address] [place] [address] PCP - General Internal Medicine 01/28/21 Issac Greenwood, AURIST, [facility] [address] [place] [id number] Nurse Practitioner Psychiatry 02/27/24 Brianna Patton MD [address] [place] [address] Consulting Physician Internal Medicine 10/31/24 documented as of this encounter
--- OUTSIDE RECORDS SUMMARY | 2025-05-05 08:30 | XMS_ITS | Encounter Summary ---
Author Organization [facility] Address [address] [place] [address] Care Team Providers Care Director Of Trauma Name Role Phone Serge Hansen MD Primary Care Provider + [phone] Issac Greenwood APRN, DNP Unavailable [phone] Brianna Patton MD Unavailable [phone] Encounter Details Date Type Department Care Team (Latest Contact Info) Description 03/10/2025 Travel Social History Tobacco Use Types Packs/Day [...] often do you attend chur ch or oriental orthodox services? More than 4 times per year 01/31/2024 Do you belong to any clubs o r organizations such as zoroastrian groups, unions, fraternal or athletic groups, or [...] place to sleep or slept in a long term (including now)? No 01/29/2024 PHQ-9 Answer Date [...] any time in the past 12 m [facility], were you homeless or living in a long term (including now)? No 10/01/2024 AUDIT-C Answer Date [...] In the past 12 months has e [employer], gas, oil, or water company threatened to [...] Description 10/07/2025 8:45 AM EDT Office Visit [facility] [place] [address] [facility], [address] [place] [address] Erika Cifuentse MD [address] [place] [address] documented as of this encounter [...] of this encounter Care Teams Director Of Trauma Relationship Specialty Start Date End Date Serge Hansen MD [address] [place] [address] PCP - General Internal Medicine 01/28/21 Issac Greenwood APRN, DNP [address] [place] [phone] Nurse Practitioner Psychiatry 02/27/24 Brianna Patton MD [address] [phone] Consulting Physician Internal Medicine 10/31/24 documented as of this encounter
== END 2025-05-03 23:59 ==
LOC: LAB.DROPOF 05-05 08:28
PROVIDERS: PCP Nurse Practitioner Family; Visit Provider Student in an Organized Health Care Education/Training Program
DX: N39.0 Urinary tract infection, site not specified (principal)
CPT/HCPCS: 87086